=== PATIENT | female | born 1960 | race Caucasian/White ===

== ENCOUNTER → 2016-09-30 | Outpatient (CLI) | payer OTHER ==
[~2016-09-30] VITALS: Ht 162.6 cm; Wt 56.0 kg
[~2016-09-30] MED LIST: FOLIC ACID1 MG PO; HYDROCODON-ACE1 EAC5 PO; METHADONE HCL 110 M1 PO; MULTI VITAMIN1 EACH PO; THERALITH XR T1 EACH PO; VITAMIN B-12500 MCG PO; VITAMIN D1000 UNI1 PO
--- NOTE | ~2016-09-30 | HPC ---
[facility] [place] [address] PAIN MANAGEMENT CONSULTATION Name: JAYNA DURAN [facility] #: [facility] [id number] Admission: 09/30/16 Attend Phys: Olvin Green MD Discharge: Date of : 56 Report #: [id number] THIS REPORT FOR: //name// CC: ADAM Duarte MD DATE OF SERVICE: 09/30/2016 DATE OF SERVICE: 09/30/2016 CHIEF COMPLAINT: Pain has improved. FOLLOWUP HISTORY: The patient is a 56-year-old female, who has been seen in the pain clinic because of lumbar radiculopathy. As you recall, she has a significant amount of spinal stenosis involving her lower back. She also has significant scoliosis in the lower back area. She underwent an epidural steroid injection in the past few weeks. She noticed that her pain improves significantly after that. She rates it as a 7/10. She is able to engage in more activities with less problem. At this juncture, she feels that things are going reasonably well and would like to continue on a conservative approach. PHYSICAL EXAMINATION: Blood pressure 139/91, pulse 78, respiratory rate 14, room air saturation is 96%. The patient's height 5 feet 4 inches, weight 155 kilograms. BMI 26. The patient continues to smoke. She has not fallen since we saw her last. She notes that the pain which has been radiating down into her legs has improved. She would like to have her medications refilled. She notes that the pain is worse after walking for a long period of time. Notes improvement in pain with sitting. IMPRESSION: 1. Significant spinal stenosis in the lumbar area with a curvature to the right as well as lumbar radiculopathy in the left as well in the right area. 2. Hypertension. 3. Acid reflux. RECOMMENDATIONS: We will continue with the patient's current medical regimen and a script for methadone 10 mg 1 p.o. b.i.d. has been written. The patient will also try and continue hydrocodone 10 mg 1 p.o. b.i.d. She will call us if she has any problems with her medications. We would like to thank you for letting us participate in her care. We hope she continues to improve. <ELECTRONICALLY SIGNED> By: Olvin Green MD 10/18/16 [id number] Olvin Green MD /nt
[2016-09-30 12:55] VITALS: BP 139/91
== END | disposition home or self-care (01) ==
LOC: PAIN 07:19
DX: M48.06 Spinal stenosis, lumbar region (principal); I10 Essential (primary) hypertension; K21.9 Gastro-esophageal reflux disease without esophagitis; F17.200 Nicotine dependence, unspecified, uncomplicated

== ENCOUNTER → 2016-12-09 | Outpatient (CLI) | payer OTHER ==
[~2016-12-09] VITALS: Ht 160 cm; Wt 54.0 kg
--- NOTE | ~2016-12-09 | HPC ---
[facility] [address] [address] PAIN MANAGEMENT CONSULTATION Name: JAYNA DURAN [facility] [id number] Admission: 12/09/16 Attend Phys: Olvin Green MD Discharge: Date of : 56 Report #: [id number] THIS REPORT FOR: //name// CC: João Duarte DO DATE OF SERVICE: 12/09/2016 FOLLOWUP COMPLAINT: My back is a little worse because I have been lifting the babies. FOLLOWUP HISTORY: The patient is a 56-year-old female who has been seen in the pain clinic because of lumbar radiculopathy. As you recall, she has a significant pathology in her lower back with scoliosis. She is having pain and discomfort, which radiates down into her legs causing numbness, tingling and weakness involving the right leg. She has undergone epidural steroid injections and gleaned benefit from that. She has noticed that her pain increased somewhat in the last few weeks. Her daughter recently had a baby. The youngest child was at home with her. She had to lift and move the child from car seat, chair, and on and off beds. She notices that has exacerbated her pain somewhat. She would like to proceed with another epidural steroid injection, which provided greater than 80% improvement after the last procedure. PHYSICAL EXAMINATION: Blood pressure 145/94, pulse 71, respiratory rate 14, room air saturation 96%. The patient has pain and discomfort in the lower portion of her back with pain radiating down into her left leg with some tingling. She also has pain in the right leg as well. More problematic on the left. IMPRESSION: Spinal stenosis with curvature of her back to the right with lumbar radiculopathy, which improved by greater than 50% after the last epidural steroid injection. RECOMMENDATIONS: We discussed treatment options with the patient. She will continue with epidural steroid injections as long as possible with the thought that she will probably undergo surgery in the future. PROCEDURE NOTE: The patient was placed in the home prone position. Risks and benefits were again reviewed. Possible complications were discussed. The patient was placed in the prone position. Her back was sterilely prepped with Betadine. 0.25% bupivacaine was infiltrated at the L4-L5 interspace. This area had been sterilely prepped with Betadine and infiltrated with 0.25% bupivacaine. Total of 80 mg Depo-Medrol, 40 mg triamcinolone and 2 mL of 0.5% bupivacaine was injected. The patient tolerated the procedure well. A script for methadone [address] [address] PAIN MANAGEMENT CONSULTATION Name: JAYNA DURAN Room #: REG [facility] Mj.Ghassan.#: [id number] Admission: 12/09/16 Attend Phys: Olvin Green MD Discharge: Date of : 56 Report #: [id number] 10 mg 1 p.o. b.i.d. and hydrocodone 10/325 one p.o. b.i.d. have been dispensed. The patient will call us if she has any problems with her medications. We would like to thank you for letting us participate in her care. We hope she continues to improve. By: [id number] Olvin Green MD /nt
[2016-12-09 12:44] VITALS: BP 145/94
== END | disposition home or self-care (01) ==
LOC: PAIN 07:04
DX: M48.06 Spinal stenosis, lumbar region (principal); F17.200 Nicotine dependence, unspecified, uncomplicated

== ENCOUNTER → 2017-02-01 | Outpatient (CLI) | payer OTHER, SELFPAY ==
[~2017-02-01] VITALS: Ht 160 cm; Wt 53.5 kg
--- NOTE | ~2017-02-01 | HPC ---
[facility] [place] [address] [address] PAIN MANAGEMENT CONSULTATION Name: JAYNA DURAN Room #: REG [facility]..#: [id number] Admission: 02/01/17 Attend Phys: Olvin Green MD Discharge: Date of : 56 Report #: [id number] THIS REPORT FOR: //name// CC: João Duarte DO DATE OF SERVICE: 02/01/2017 FOLLOWUP COMPLAINT: The pain has increased a little and I think it would be better if I had another hydrocodone pill. FOLLOWUP HISTORY: The patient is a 56-year-old female who has been followed in the pain clinic because of lumbar radiculopathy. She has undergone epidural steroid injections in the past. She has found some benefit from these. She continues to have pain and discomfort. As you recall, she has significant problems with scoliosis of her lower back. She is continuing to have some weakness, numbness and tingling involving her right leg. She feels that her pain medications are helpful. She does note that by the end of the day that she has an increasing amount of pain that is problematic, particularly at night. PHYSICAL EXAMINATION: Blood pressure 140/83, pulse 68, respiratory rate 14, room air saturation 99%. Height 5 feet 3 inches. BMI is 20. Weight is 53 kg. She continues to have pain and discomfort radiating down into her left leg with tingling and weakness. IMPRESSION: 1. Spinal stenosis with significant curvature of her back to the right. 2. Lumbar radiculopathy with pain radiating down into the left leg with weakness. Greater than 50% improvement after epidural steroid injections. RECOMMENDATIONS: We discussed treatment options with the patient. We will continue with a conservative approach. She will continue with methadone 1 p.o. b.i.d. and hydrocodone 1 p.o. t.i.d. has been issued. She will call us if she has any problems with her medications. We would like to thank you for letting us participate in her care. We hope she continues to improve. By: [id number] Olvin Green MD /nt
[2017-02-01 12:02] VITALS: BP 140/83
== END | disposition home or self-care (01) ==
LOC: PAIN 07:22
DX: M48.06 Spinal stenosis, lumbar region (principal); F17.210 Nicotine dependence, cigarettes, uncomplicated

== ENCOUNTER → 2017-03-03 | Outpatient (CLI) | payer OTHER, SELFPAY ==
[~2017-03-03] VITALS: Ht 160 cm; Wt 52.8 kg
--- NOTE | ~2017-03-03 | HPC ---
[facility] [place] [address] [place] [address] PAIN MANAGEMENT CONSULTATION Name: JAYNA DURAN Room #: REG [facility].Ghassan.#: [id number] Admission: 03/03/17 Attend Phys: Olvin Green MD Discharge: Date of : 56 Report #: [id number] THIS REPORT FOR: //name// CC: João Duarte DO DATE OF SERVICE: 03/03/2017 FOLLOWUP COMPLAINT: "I am here for my medicine renewal and an epidural injection. The pain has worsened." FOLLOWUP HISTORY: The patient is a 56-year-old female who has been followed in the pain clinic because of lumbar radiculopathy. As you recall, she has significant pathology in the lower portion of her back with spinal stenosis. She has noted a worsening of pain and discomfort in the lower portion of her back with some pain radiating down into the right leg as well as the left leg. They follow the L5 dermatomal distribution. She has gleaned greater than 50% improvement after the last epidural steroid injections and would like to proceed with another treatment today. Possible complications were reviewed. The patient elects to proceed. PHYSICAL EXAMINATION: Blood pressure is 173/96, pulse is 62, respiratory rate 16, room air saturation is 97, height 5 feet 3 inches, weight 52 kilograms. BMI is 20. The patient has pain and discomfort radiating down into her legs, left and right in the L5 distribution. She notes some weakness in this area as well with numbness and tingling. IMPRESSION: 1. Spinal stenosis with significant curvature of her back to the right. 2. Lumbar radiculopathy with pain radiating down to the left leg as well as the right at this juncture. The patient has gleaned greater than 50% improvement after epidural steroid injections. RECOMMENDATIONS: We discussed treatment options with the patient. Risks and benefits of the procedure were again reviewed. Possible complications were discussed. They include possibility of infection, increased muscle soreness, headache, bleeding, increased muscle pain and/or not limited to those. She elects to proceed. PROCEDURE NOTE: The patient was placed in the prone position. Fluoroscopy was used to identify the L4-L5 interspace. This area had been sterilely prepped with Betadine and infiltrated with 0.25% bupivacaine. A total of 80 mg Depo-Medrol, 40 mg triamcinolone and 2 mL of 0.25% bupivacaine was injected. The patient tolerated the procedure well. There [place] [address] PAIN MANAGEMENT CONSULTATION Name: JAYNA DURAN [id number] Admission: 03/03/17 Attend Phys: Olvin Green MD Discharge: Date of : 56 Report #: [id number] will follow up in the future as needed. A script for methadone 10 mg 1 p.o. b.i.d. and hydrocodone 10 mg t.i.d. have been released. She will call us if she has any problems with her medications. We would like to thank you for letting us participate in her care. We hope she continues to improve. A total of 5 seconds fluoroscopy time was used. By: 1350 02 Olvin Green MD /nt
[2017-03-03 10:11] VITALS: BP 173/96
== END ==
LOC: PAIN 06:44
DX: M54.16 Radiculopathy, lumbar region (principal); M48.06 Spinal stenosis, lumbar region; I10 Essential (primary) hypertension; F17.210 Nicotine dependence, cigarettes, uncomplicated; Z79.899 Other long term (current) drug therapy

== ENCOUNTER → 2017-04-28 | Outpatient (CLI) | payer OTHER, SELFPAY ==
[~2017-04-28] VITALS: Ht 160 cm; Wt 54.0 kg
[~2017-04-28] MED LIST changes: +VOLTAREN100 GM TP
--- NOTE | ~2017-04-28 | HPC ---
[facility] [address] [place] [address] PAIN MANAGEMENT CONSULTATION Name: JAYNA DURAN Room #: REG [facility]..#: [id number] Admission: 04/28/17 Attend Phys: Olvin Green MD Discharge: Date of : 56 Report #: [id number] THIS REPORT FOR: //name// CC: João Duarte DO DATE OF SERVICE: 04/28/2017 FOLLOWUP COMPLAINT: Here for medication renewal. FOLLOWUP HISTORY: The patient is a 57-year-old female who has significant lumbar pathology. She has undergone epidural steroid injections. She states that in the future, she will probably undergo major back surgery to help with her pain and disability. She rates her pain as a 5/10. She has continued to have some pain radiating down into her legs. She was walking out of her backdoor. Her dog bumped her, she fell and traumatized her left shoulder and some back discomfort increased. She continues to have tingling in her left leg. She finds that hydrocodone and methadone are efficacious and would like to continue their use. She is taking them as prescribed. PHYSICAL EXAMINATION: Blood pressure 144/101, pulse 77, respiratory rate 16, room air saturation is 100%. Height 5 feet 3 inches, weight 119 pounds, BMI is 21. The patient continues to have pain and discomfort, which is radiating down into her back and leg. IMPRESSION: 1. Spinal stenosis with significant curvature of her back to the right. 2. Lumbar radiculopathy with pain radiating down to the left leg and the right leg. The patient gleans greater than 50% improvement after epidural steroid injections. She will consider an injection at the next visit. RECOMMENDATIONS: We will continue with her current medical management with hydrocodone 10/325 one p.o. t.i.d. and methadone 10 mg 1 p.o. b.i.d. The patient finds that Voltaren cream has been efficacious in decreasing pain and discomfort. A script for this medication has been written. We would like to thank you for letting us participate in her care. We hope she continues to improve. By: 1418 1511 Olvin Green MD /
[2017-04-28 12:49] VITALS: BP 144/101
== END ==
LOC: PAIN 06:32
DX: M48.06 Spinal stenosis, lumbar region (principal); M54.16 Radiculopathy, lumbar region

== ENCOUNTER → 2017-06-23 | Outpatient (CLI) | payer OTHER, SELFPAY ==
[~2017-06-23] VITALS: Ht 160 cm; Wt 55.5 kg
--- NOTE | ~2017-06-23 | HPC ---
[facility] [address] [address] PAIN MANAGEMENT CONSULTATION Name: JAYNA DURAN Room #: REG [facility]..#: [id number] Admission: 06/23/17 Attend Phys: Olvin Green MD Discharge: Date of : 56 Report #: [id number] THIS REPORT FOR: //name// CC: João Duarte DO DATE OF SERVICE: 06/23/2017 FOLLOWUP COMPLAINT: "The pain has really gotten better and I need another injection." FOLLOWUP HISTORY: The patient is a 57-year-old female who has been seen in the pain clinic because of lumbar radiculopathy. She has undergone epidural steroid injection in the past and gleaned benefits from these. She returns today indicating that her pain has becomes quite problematic over the last few weeks. She has had to take more pain medication. She rates her pain as 08/10. She has been experiencing some pain and discomfort in the left buttocks area. There is pain along the right lateral leg down the calf and into the foot. She also has some pain and discomfort in the left anterior thigh and notes a component of itching with this. PHYSICAL EXAMINATION: Blood pressure 149/89, pulse 68, respiratory rate 14, room air saturation 96%. Height 5 foot 3, weight 122 pounds, BMI is 21. The patient has not fallen since we saw her last. As you recall, she has a significant curvature in her back with scoliosis. She has significant arthritis in the lower portion of her back as well. She is having pain and discomfort in the L4-L5 dermatomal distribution. IMPRESSION: 1. Spinal stenosis with significant curvature of her back to the right. 2. Lumbar radiculopathy with pain radiating down the left leg and the right leg as described above. 3. Tobacco use. RECOMMENDATIONS: We discussed treatment options with the patient. Risks and benefits of an epidural steroid injection were again reviewed. Possible complications were discussed. Possibility of infection, increased muscle soreness, headache, bleeding, muscle trauma, nerve trauma were discussed and the patient elects to proceed. PROCEDURE NOTE: The patient was placed in the prone position. Fluoroscopy was used to identify the L4-L5 interspace. This area had been sterilely prepped with Betadine and infiltrated with 0.25% bupivacaine. Total of 80 mg Depo-Medrol, 40 mg triamcinolone and 2 mL of 0.25% bupivacaine was injected. [address] [address] PAIN MANAGEMENT CONSULTATION Name: JAYNA DURAN [id number] Admission: 06/23/17 Attend Phys: Olvin Green MD Discharge: Date of : 56 Report #: [id number] The patient tolerated the procedure well. Her pain decreased from 10 to 0 at the time of discharge. A renewal of her medication for methadone 10 mg 1 p.o. b.i.d. and hydrocodone 10 mg 1 p.o. t.i.d. has been written. She will follow up in the future as needed. We would like to thank you for letting us participate in her care. We hope she continues to improve. By: 1417 0142 Olvin Green MD /PMT
[2017-06-23 12:56] VITALS: BP 149/89
== END ==
LOC: PAIN 07:01
DX: M54.16 Radiculopathy, lumbar region (principal); M48.061 Spinal stenosis, lumbar region without neurogenic claudication; F17.200 Nicotine dependence, unspecified, uncomplicated; Z79.891 Long term (current) use of opiate analgesic

== ENCOUNTER → 2017-08-18 | Outpatient (CLI) | payer OTHER ==
[~2017-08-18] VITALS: Ht 160 cm; Wt 54.4 kg
[2017-08-18 13:37] VITALS: BP 143/87
== END ==
LOC: PAIN 07:11
DX: M48.061 Spinal stenosis, lumbar region without neurogenic claudication (principal); G89.29 Other chronic pain; F17.200 Nicotine dependence, unspecified, uncomplicated; Z98.890 Other specified postprocedural states; Z79.891 Long term (current) use of opiate analgesic

== ENCOUNTER → 2017-10-13 | Outpatient (CLI) | payer OTHER ==
[~2017-10-13] VITALS: Ht 157.5 cm; Wt 52.6 kg
[~2017-10-13] MED LIST changes: +FLEXERIL PO
--- NOTE | ~2017-10-13 | HPC ---
[facility] [address] [address] PAIN MANAGEMENT CONSULTATION Name: JAYNA DURAN Room #: REG [facility].#: [id number] Admission: 10/13/17 Attend Phys: Olvin Green MD Discharge: Date of : 56 Report #: [id number] THIS REPORT FOR: //name// CC: Olvin Duarte DATE OF SERVICE: 11/01/2017 CHIEF COMPLAINT: Low back pain. "My pain seems to be getting worse." FOLLOWUP HISTORY: The patient is a 57-year-old female who has been followed in the pain clinic because of chronic pain. As you recall, she has a significant amount of pathology in her low back with scoliosis. She has been talking to Dr. Sexton. At this juncture, she feels like her pain may be worsening. She has started a new job recently. She would like to continue to work for as long as she can. She hates to start a job and immediately go on medical leave. She is having pain and discomfort, which is radiating down into her lower back in the L5/L4 distribution. She would like to undergo another epidural steroid injection today. She rates her pain as a 9/10. She is experiencing numbness, tingling, sharp and crampy pain and discomfort down into her legs bilaterally. There is some pain and discomfort in the low back and buttocks area as well. She continues to take methadone and hydrocodone, they are helpful. She is contemplating that she may have to have surgery sooner than she would like. She has returned today for an epidural steroid injection to help control her pain. ALLERGIES: No known drug allergies. MEDICATIONS: Review of current medications include: 1. Methadone 10 mg 1 p.o. b.i.d. 2. Hydrocodone 10/325 one p.o. q. 4-6h. p.r.n. pain. 3. Multivitamins. 4. Vitamin D 1000 units. 5. Folic acid 1 mg. 6. TheraLith XR tablet. 7. Vitamin B 12/500 mg. PAIN CLINIC ASSESSMENT: 1. The patient is suffering from arthritis of the lower back with spinal stenosis and worsening curvature of her lower back. 2. Height 5 feet, 2 inches, weight 116 pounds, BMI is 21. 3. VITAL SIGNS: Blood pressure 153/86, respiratory rate is 16, pulse 77, The saturation was 98. 4. Pain intensity rated as 9 low back area. 5. Fall risk. The patient has not fallen in the last 3 months. She is not a fall risk. 6. The [place] [address] PAIN MANAGEMENT CONSULTATION Name: JAYNA DURAN [facility] [id number] Admission: 10/13/17 Attend Phys: Olvin Green MD Discharge: Date of : 56 Report #: [id number] 7. The patient is not being treated for hypertension. 8. Opioid therapy greater than 6 weeks. The patient has a contract with the pain clinic stating she will only get her medication at the pain clinic. 9. Risk assessment tool. 10. Functional assessment tool. 11 Recreational drug use, never. 12. Tobacco use. The patient was smoking about 3 cigarettes a day. Has a 90-pzab-jcek smoking history. 13. Alcohol use. Rarely uses alcohol, maybe 1 alcoholic beverage per week. PHYSICAL EXAMINATION: GENERAL: The patient is a well-developed female, appears stated age. Orientation: Alert and oriented x 3. Affect appears appropriate. HEENT: The patient is normocephalic, atraumatic. Extraocular muscles intact. Normal hearing. No nasal complaints. Buccal membranes moist. NECK: Without JVD or adenopathy. LUNGS: Clear to auscultation. HEART: Regular rate. ABDOMEN: Soft, nontender. MUSCULOSKELETAL: The patient has scoliosis of the upper back, walks with a slightly antalgic gait. The patient has pain and discomfort radiating down into the L4-L5 distribution involving her legs bilaterally with pain in the buttocks and exacerbation of pain when prolonged standing, walking and with sitting. IMPRESSION: 1. Spinal stenosis with significant curvature of back to the right. 2. Lumbar radiculopathy with pain radiating down to left and right leg. 3. Tobacco use, 30-year history. 4. Complex medication management to help control the pain with opioid therapy involving the methadone and hydrocodone. RECOMMENDATIONS: We discussed treatment options with the patient. The patient states that she is taking her medication as prescribed. She would not be able to continue with her job without use of medications at this juncture. She finds that the pain has increased. She feels that it is increasing. The weather pattern has changed that has been a factor. She feels that another injection would be helpful. Previous epidural steroid injections have been quite beneficial. She denies any problems with mentation or bowel or bladder dysfunction with use of her medications. She is aware that opioid medications are in the news. We have discussed the possible complication of opioid medications, which include addiction as well as long-term use may cause tolerance. States that she keeps her medications in a confined area. She would like to proceed with an epidural steroid injection. Risks and benefits of that, which could include infection, increased muscle soreness, headache, bleeding, worsening of pain, no improvement in pain and spinal headache were discussed. She elects to proceed. [facility] [address] [address] PAIN MANAGEMENT CONSULTATION Name: JAYNA DURAN Room #: REG [facility]#: [id number] Admission: 10/13/17 Attend Phys: Olvin Green MD Discharge: Date of : 56 Report #: [id number] PROCEDURE NOTE: The patient was placed in the prone position. Fluoroscopy was used to identify the site. Anterior and posterior as well as lateral viewing of the site was performed using fluoroscopy. Her back was sterilely prepped with a Betadine solution. A 0.25% bupivacaine was infiltrated into this area after appropriate placement of a 17-gauge Tuohy using loss of resistance technique. There was no CSF, heme or paresthesia. A total of 80 mg Depo-Medrol, 40 mg triamcinolone and 2 mL of 0.25% bupivacaine was injected. The patient tolerated the procedure well. There were no complications. A script for her medications of hydrocodone 10/325 one p.o. t.i.d. and methadone 15 mg a.m. and 10 mg evening were written. The patient will call us if she has any problems with her medications. I would like to thank you for letting us participate in her care. Hope she continues to improve. <ELECTRONICALLY SIGNED> By: Olvin Green MD 11/22/17 1426 1321 [id number] MD RANJAN Vargas
[2017-10-13 10:45] VITALS: BP 153/86
== END | disposition home or self-care (01) ==
LOC: PAIN 06:48
DX: M54.16 Radiculopathy, lumbar region (principal); F11.20 Opioid dependence, uncomplicated; M48.00 Spinal stenosis, site unspecified; Z79.899 Other long term (current) drug therapy; M19.90 Unspecified osteoarthritis, unspecified site; Z87.891 Personal history of nicotine dependence

== ENCOUNTER → 2018-01-05 | Outpatient (CLI) | payer OTHER ==
[~2018-01-05] VITALS: Ht 160 cm; Wt 53.5 kg
[~2018-01-05] MED LIST changes: -FLEXERIL PO
--- NOTE | ~2018-01-05 | HPC ---
[facility] [place] [address] PAIN MANAGEMENT CONSULTATION Name: JAYNA DURAN Room #: [facility] [id number] Admission: 01/05/18 Attend Phys: Olvin Green MD Discharge: Date of : 56 Report #: [id number] THIS REPORT FOR: //name// CC: Olvin Duarte DATE OF SERVICE: 01/05/2018 FOLLOWUP COMPLAINT: Here for an epidural steroid injection. FOLLOWUP HISTORY: The patient is a 57-year-old female who has been followed in the pain clinic because of significant pathology in her low back. She suffered from significant scoliosis. She has continued to work. Notes that her pain continues to worsen as time goes on. She has found that epidural steroid injections have been beneficial. They allow her to continue with her job and stay gainfully employed. She has recently secured a new job. She would like to continue to work as long as possible before having the undergo medical leave. She continues to have pain and discomfort in the L4-L5 distribution. Epidural steroid injections have been quite beneficial. At this point, she rates her pain as a 10/10. There is pain in the lower portion of her back, it radiates down to the low back down into her buttocks bilaterally and involves both legs. There is some discomfort in her ankles as well. She notes that the pain is exacerbated with prolonged sitting, walking and standing. It did improve somewhat with repositioning, stretching and cold applications. She would like to proceed with another epidural steroid injection. She finds that those have been helpful. Finds that the methadone medication hydrocodone are also helpful and enable her to stay as pain free as possible and functional. ALLERGIES: No known drug allergies. MEDICATIONS: 1. Methadone 10 mg 1 p.o. b.i.d., hydrocodone 10/325 one p.o. q. 4-6 p.r.n., multiple vitamins. 2. Vitamin D 1000 units. 3. Folic acid. 4. TheraLith XR tablets. 5. Vitamin B12/500 mg. PAIN CLINIC ASSESSMENT: 1. The patient has a history of osteoarthritic changes in the lower back. 2. Height 5 foot 3, weight 118 pounds, BMI is 20. 3. Vital signs, blood pressure 149/88, pulse 80, respiratory rate 14 and room air saturation is 100. Pain intensity 10/10. 4. Fall risk. The patient has not fallen in the last 3 months. 5. Blood thinner. The patient is not on [place] [address] PAIN MANAGEMENT CONSULTATION Name: JAYNA DURAN Room #: REG [facility]#: [id number] Admission: 01/05/18 Attend Phys: Olvin Green MD Discharge: Date of : 56 Report #: [id number] 6. History of hypertension. The patient is being treated for hypertension. 7. Opioid therapy greater than 6 weeks. The patient is on her opioid contract. 8. Risk assessment, moderate for opioid use. 9. Functional assessment tool 39/70 indicating moderate problems with activities of daily living secondary to the pain. 10. Recreational drug use. 11. Tobacco. The patient continues to smoke cigarettes. 12. Alcohol: The patient denies frequent use of alcoholic beverages. PHYSICAL EXAMINATION: GENERAL: The patient is well developed, well-nourished white female. Appears her stated age. She is alert and oriented x 3. Speech is fluent. HEENT: Normocephalic, atraumatic. Extraocular eye muscles intact. Sclerae nonicteric Hearing is within normal limits. Mucous membranes are moist. NECK: Without JVD or adenopathy. Good range of motion. LUNGS: Clear to auscultation without rales or rhonchi. HEART: Regular rate. S1, S2. ABDOMEN: Nontender. MUSCULOSKELETAL: The patient has significant scoliosis of the upper back and walks with a slightly antalgic gait. The patient has discomfort radiating down to the L4-L5 distribution involving her legs bilaterally and into the buttocks with exacerbation of pain with prolonged standing or walking. IMPRESSION: 1. Spinal scoliosis and significant curvature of back to the right. 2. Lumbar radiculopathy with pain radiating down to the left and right leg. 3. Tobacco use greater than 30-year history. 4. Complex medical regimen using opioid medications of methadone and hydrocodone. RECOMMENDATIONS: We discussed treatment options with the patient. Risks and benefits of an epidural steroid injection were again reviewed. Possible complications were discussed. The possible complications, which could include but are not limited to infection, increased muscle soreness, headaches, bleeding, nerve trauma, spinal headache were reviewed. The patient elects to proceed. She feels that her epidural steroid injections continue to be helpful. They are now able her to remain gainfully employed. They decrease the amount of pain and discomfort that she has had. She has had no complications. She would like to continue working as long as possible before she would have to undergo surgery for improvement of her condition. She elects to proceed. PROCEDURE NOTE: The patient was taken to the fluoroscopy area. She was assisted in getting on the fluoroscopy table. She was placed in the appropriate position. Her back was sterilely prepped with a Betadine solution and allowed to dry. Fluoroscopy using anterior, posterior as well as lateral visualization was used to identify the L4-L5 interspace. This area had been sterilely prepped [facility] [address] [place] [address] PAIN MANAGEMENT CONSULTATION Name: JAYNA DURAN Room #: REG [facility] Mitch.#: [id number] Admission: 01/05/18 Attend Phys: Olvin Green MD Discharge: Date of : 56 Report #: [id number] with Betadine and infiltrated with 0.25% bupivacaine. Total of 80 mg Depo-Medrol, 40 mg triamcinolone and 2 mL of 0.25% bupivacaine was injected. The patient tolerated the procedure well. She was then assisted to the waiting area. A Band-Aid had been placed. There was no bleeding. She remained there for an appropriate amount of time. A total of 30 seconds fluoroscopy time was used. The patient's pain was rated at 7 at the time of discharge. We would like to thank you for letting us participate in her care. We hope she continues to improve. <ELECTRONICALLY SIGNED> By: Olvin Green MD 01/19/18901 1825 13 Olvin Green MD /nt
[2018-01-05 11:12] VITALS: BP 149/88
== END | disposition home or self-care (01) ==
LOC: PAIN 12-08 07:47
DX: M48.061 Spinal stenosis, lumbar region without neurogenic claudication (principal); G89.29 Other chronic pain; M54.16 Radiculopathy, lumbar region; I10 Essential (primary) hypertension; F17.210 Nicotine dependence, cigarettes, uncomplicated; Z79.891 Long term (current) use of opiate analgesic; Z98.890 Other specified postprocedural states

== ENCOUNTER → 2018-02-23 | Outpatient (CLI) | payer OTHER ==
[~2018-02-23] VITALS: Ht 160 cm; Wt 52.1 kg
[~2018-02-23] MED LIST changes: +FLEXERIL PO
[2018-02-23 09:30] VITALS: BP 157/91
== END | disposition home or self-care (01) ==
LOC: PAIN 06:44
DX: M54.16 Radiculopathy, lumbar region (principal); M41.86 Other forms of scoliosis, lumbar region; I10 Essential (primary) hypertension; Z79.899 Other long term (current) drug therapy; F17.210 Nicotine dependence, cigarettes, uncomplicated

== ENCOUNTER → 2018-04-25 | Outpatient (CLI) | payer OTHER ==
[~2018-04-25] VITALS: Ht 160 cm; Wt 53.8 kg
[2018-04-25 10:11] VITALS: BP 146/94
== END | disposition home or self-care (01) ==
LOC: PAIN 07:01
DX: M54.16 Radiculopathy, lumbar region (principal); G89.29 Other chronic pain; F17.210 Nicotine dependence, cigarettes, uncomplicated; Z79.891 Long term (current) use of opiate analgesic

== ENCOUNTER → 2018-06-22 | Outpatient (CLI) | payer OTHER ==
[~2018-06-22] VITALS: Ht 160 cm; Wt 55.8 kg
--- NOTE | ~2018-06-22 | HPC ---
[facility] [address] [address] [place] [address] PAIN MANAGEMENT CONSULTATION Name: JAYNA DURAN Room #: REG [facility].#: [id number] Admission: 06/22/18 Attend Phys: Olvin Green MD Discharge: Date of : 56 Report #: [id number] THIS REPORT FOR: //name// CC: Olvin Duarte DATE OF SERVICE: 06/22/2018 FOLLOWUP HISTORY: Things were going pretty well. I was carrying an item, and slipped and pulled my back." FOLLOWUP HISTORY: The patient is a 58-year-old female who has been followed in the pain clinic because of lumbar radiculopathy. She has returned today indicating that her pain has been pretty well controlled after the last injection. She noted some worsening of her pain after walking. She states that she was carrying an item. She slipped somewhat. As a result, she pulled her back about one week ago. Since that time, she has noticed some increase in pain. Rates it as a 9/10. Overall, things were going reasonably well. Notes that the pain is exacerbated with standing, walking and sitting. Finds her medications continue to be helpful. Notes that use of cold as well as stretching are beneficial as well. She continues to work. She is having pain that is radiating down into her legs bilaterally. As you recall, her pain has been quite problematic since 2009. She would like to have her medications renewed. Feels that the medications are helpful. She is taking them as prescribed. ALLERGIES: No known drug allergies. CURRENT MEDICATIONS: Methadone 10 mg 1 p.o. b.i.d., hydrocodone 10/325 one p.o. 4-6 hours, multivitamins, vitamin D, folic acid, TheraLith XR tablets, vitamin B12 500 mg PAIN CLINIC ASSESSMENT/PQRS. 1. The patient has a history of osteoarthritic pain. Has pain in her lower back area. It is not being treated for rheumatoid arthritis. 2. Height 5 feet 3 inches, weight 123 pounds, BMI is 21.8: 3. Vital signs: Blood pressure 154/93, pulse 100, respiratory rate 16, room air saturation 98%. 4. Pain intensity 05/21. 5. Fall risk. The patient has not fallen in the last 3 months. 6. Blood thinner. The patient is not on a blood thinning medication. 7. Hypertension. The patient is being treated for hypertension. 8. Opioids greater than 6 weeks. The patient receives her medications from one source, the pain clinic. 9. Risk assessment tool 5/moderate risk for use of opioids. 10. Functional assessment tool 39/70. [address] [address] PAIN MANAGEMENT CONSULTATION Name: JAYNA DURAN [facility] [id number] Admission: 06/22/18 Attend Phys: Olvin Green MD Discharge: Date of : 56 Report #: [id number] 11. Recreational drug use. The patient denies use of recreational drugs. 12. Tobacco: The patient currently smokes. We discussed the benefits of decreasing smoking. 13. Alcohol: The patient denies use of frequent use of alcoholic beverages. PHYSICAL EXAMINATION: GENERAL: The patient is a well-developed, well-nourished, slightly thin white female. Appears her stated age. She is alert and oriented x 3. HEENT: Normocephalic, atraumatic. Extraocular eye muscles intact. Sclerae nonicteric. Mucous membranes are moist. Hearing is within normal limits. NECK: Without JVD or adenopathy. Good range of motion. LUNGS: Clear to auscultation without rales or rhonchi. HEART: Regular rate. S1, S2. ABDOMEN: Nontender. Bowel sounds present. MUSCULOSKELETAL: With note of scoliosis in the lower back. The patient without significant kyphosis or lordosis. The patient does have pain and discomfort. Has a somewhat antalgic gait. Complains of pain that radiates down into her legs bilaterally. This is in the L4-L5 distribution. Notes prolonged pain with standing as well as some increased pain with walking. IMPRESSION: 1. Spinal stenosis with significant curvature of her back to the right. 2. Lumbar radiculopathy with pain radiating down into the left and right legs. 3. Tobacco use greater than 30 years. 4. Complex medical management with methadone and hydrocodone. RECOMMENDATIONS: We discussed treatment options with the patient. At this juncture, she feels that her medications are helpful. She hurt her back while walking in store. She felt some slip of her leg. Quickly moved to keep from falling. No wrenching sensation in her back and has had a pain, which has worsened over the last week. Feels that her medications are working well. Had no complication from their use. We would like to have the medications renewed. Our recommendation, We will renew the patient's medication. Risks and benefits of the opioid medications were again reviewed. They include benefit secondary to pain relief and increase ability to engage in activities of daily living. Possible complications or addiction as well as decreased effectiveness secondary due to development of tolerance. PROCEDURE NOTE: We discussed the treatment options with the patient. Risks and benefits of an epidural steroid injection were again reviewed. They include but are not limited to infection, increased muscle soreness, headache, bleeding, worsening of pain, no improvement in pain, spinal irritation/nerve damage with paralysis. The patient elects to proceed. PROCEDURE NOTE: The patient was taken to the procedure area. She was assisted and helped to get on the examination table. Her back was sterilely prepped with [facility] [address] [place] [address] PAIN MANAGEMENT CONSULTATION Name: JAYNA DURAN Room #: REG [facility].#: [id number] Admission: 06/22/18 Attend Phys: Olvin Green MD Discharge: Date of : 56 Report #: [id number] a Betadine solution. Fluoroscopy using anterior, posterior as well as lateral viewing were introduced. Her back was infiltrated with 0.25% bupivacaine. A 17-gauge Tuohy with loss of resistance technique was used to gain access to the epidural space. There was no CSF, heme or paresthesia. Total of 80 mg Depo-Medrol, 40 mg triamcinolone and 2 mL of 0.25% bupivacaine was injected. The patient tolerated the procedure well. A script for her medications of methadone 10/325 one p.o. t.i.d., methadone 10 mg 1 p.o. b.i.d. were renewed. We would like to thank you for letting us participate in her care. We hope she continues to improve. <ELECTRONICALLY SIGNED> By: Olvin Green MD 06/25/18 1125 [id number] Olvin Green MD /[place]
[2018-06-22 14:22] VITALS: BP 154/93
== END | disposition home or self-care (01) ==
LOC: PAIN 07:09
DX: M54.16 Radiculopathy, lumbar region (principal); M48.00 Spinal stenosis, site unspecified; M19.90 Unspecified osteoarthritis, unspecified site; I10 Essential (primary) hypertension; F17.210 Nicotine dependence, cigarettes, uncomplicated; Z79.899 Other long term (current) drug therapy; Z79.891 Long term (current) use of opiate analgesic

== ENCOUNTER → 2018-08-24 | Outpatient (CLI) | payer OTHER ==
[~2018-08-24] VITALS: Ht 160 cm; Wt 54.0 kg
[~2018-08-24] MED LIST changes: +NEURONTIN100 MG PO
[2018-08-24 09:49] VITALS: BP 150/90
== END ==
LOC: PAIN 09:22
DX: M54.5 Low back pain (principal); M79.662 Pain in left lower leg; M79.661 Pain in right lower leg; I10 Essential (primary) hypertension; Z79.891 Long term (current) use of opiate analgesic; F17.210 Nicotine dependence, cigarettes, uncomplicated

== ENCOUNTER → 2018-10-24 | Outpatient (CLI) | payer OTHER ==
[~2018-10-24] VITALS: Ht 160 cm; Wt 57.8 kg
--- NOTE | ~2018-10-24 | HPC ---
[facility] [place] [address] PAIN MANAGEMENT CONSULTATION Name: JAYNA DURAN Room #: REG [facility] Mitch.#: [id number] Admission: 10/24/18 Attend Phys: Olvin Green MD Discharge: Date of : 56 Report #: [id number] THIS REPORT FOR: //name// CC: Olvin Duarte DATE OF SERVICE: 10/24/2018 CHIEF COMPLAINT: "Here for an epidural injection, also I would like to have my medications renewed." HISTORY OF PRESENT ILLNESS: The patient is a 58-year-old female who has been followed in the Pain Clinic because of chronic back pain. As you may recall, she has a significant amount of scoliosis. She has seen a neurosurgeon. He recommended she continue with epidural steroid injections as long as they are beneficial. She has returned today for renewal of her medication as well as another epidural steroid injection. Overall, things have been going reasonably well. The weather has changed quite a bit. We had temperatures of -7 degrees with wind chills of -25. It has been snowing. She has noted some changes with the waxing and waning of the weather pattern. Notes that she continues to try and stretch. She does continue to work. Standing and walking can sometimes be problematic. ALLERGIES: No known drug allergies. MEDICATIONS: Methadone 10 mg 1 p.o. b.i.d., hydrocodone 10/325 one p.o. 4-6 hours p.r.n., multivitamin, vitamin D, folic acid, TheraLith XR 8 tablets, vitamin B12 500 mg. PAIN CLINIC ASSESSMENT AND PQRS: 1. History of osteoarthritis: The patient has some arthritic changes of significance in her lower back. The patient is not being treated for rheumatoid arthritis. 2. Height 5 feet 3 inches, weight 127 pounds, BMI is 22.6. 3. Vital signs: Blood pressure 162/96, pulse 75, respiratory rate 16, room air saturation 98%. 4. Pain intensity: /. 5. Fall risk: The patient fell on the ice. 6. Blood thinner: The patient is not on a blood thinning medication. 7. Hypertension: The patient is being treated for hypertension. 8. Opioids greater than 6 weeks: The patient is receiving her medication from one source from the Pain Clinic. 9. Risk assessment tool: 5/5 which is moderate risk for opioid use. 10. Functional assessment tool: 39/70. 11. Recreational drug use: The patient denies use of recreational drugs. 12. Tobacco: The patient smokes one-third of a pack of cigarettes per day, [place] [address] PAIN MANAGEMENT CONSULTATION Name: JAYNA DURAN Room #: REG [facility]#: [id number] Admission: 10/24/18 Attend Phys: Olvin Green MD Discharge: Date of : 56 Report #: [id number] smoked for a number of years. We described and explained the benefits of smoking cessation. 13. Alcohol: The patient denies use of alcoholic beverages. PHYSICAL EXAMINATION: GENERAL: The patient is a well-developed, well-nourished, white female. Appears her stated age. She is alert and oriented x 3. Her affect is appropriate. Speech is fluent. HEENT: Normocephalic, atraumatic. Extraocular eye muscles intact. Sclerae nonicteric. Mucous membranes are moist. NECK: Without adenopathy or JVD. LUNGS: Clear to auscultation without rales or rhonchi. HEART: S1 and S2. ABDOMEN: Nontender. The patient has positive bowel sounds. MUSCULOSKELETAL: The patient has a significant amount of scoliosis in the lower lumbar area. The patient is without significant kyphosis or lordosis. The patient walks with an antalgic gait. She complains of pain and discomfort, which is sometimes more problematic when she goes from a sitting to a standing position. Uses her hands to go from a sitting to a standing position. She has pain and discomfort in the L4-L5 dermatomal distribution. Rates her pain as a 10/10 today. IMPRESSION: 1. History of spinal stenosis with significant curvature of the lumbar spine to the right. 2. Lumbar radiculopathy with pain radiating into the left and down into her leg. 3. Tobacco greater than 30-year history. Discussed decreasing use of tobacco. 4. Complex medical management using methadone and hydrocodone to help control the pain. RECOMMENDATIONS: We discussed treatment options with the patient. Risks and benefits of an epidural steroid injection were again reviewed. They include but are not limited to infection, worsening of pain, no improvement in pain, nerve damage with paralysis, bleeding, and the patient elects to proceed. PROCEDURE NOTE: The patient was taken to the procedure area. She was assisted in getting on the examination table. A pillow was placed under the abdomen to bolster and improve positioning. Fluoroscopy using anterior and posterior as well as lateral viewing were implemented. The patient's back at the L4-L5 interspace was sterilely prepped with Betadine solution and allowed to dry. A 25-gauge needle with 0.25% bupivacaine was infiltrated along the right L4-L5 interspace. A 17-gauge Tuohy with loss of resistance technique was used to gain access to the epidural space. There was no CSF, heme or paresthesia. Total of 80 mg Depo-Medrol, 40 mg triamcinolone, and 2 mL of 0.25% bupivacaine was injected. Total of 36 seconds fluoroscopy time was used. The patient's pain [facility] [address] [place] [address] PAIN MANAGEMENT CONSULTATION Name: JAYNA DURAN Room #: REG [facility].#: [id number] Admission: 10/24/18 Attend Phys: Olvin Green MD Discharge: Date of : 56 Report #: [id number] decreased from 10 to 7 at the time of discharge. She will follow up in the future as needed. We would like to thank you for letting us participate in her care. We hope she continues to improve. By: [id number] Olvin Green MD /nt
[2018-10-24 10:59] VITALS: BP 162/96
--- NOTE | 2018-10-24 11:09 | NUR ---
Pain Clinic Assessment: 1. History of Osteoarthritis: NONE History of Rheumatoid Arthritis: NONE 2. Height: 5 ft. 3 in. 160.0 cm. Weight: 127.4 lb. oz. 57.788 kg. Patient's BMI: 22.6 3. Vital Signs: BP: 162/96 Pulse: 75 Resp: 16 Temp: 02 Sat: 98 ECG Mon: 4. Pain Intensity: 10 5. Fall Risk: Dizziness: N Needs help standing or walking: N Fallen in the last 3 months: Y Fall risk comments: 6. Patient on Blood Thinner: None 7. History of Hypertension: Y 8. Opioid Therapy greater than 6 weeks: Y Opiate Contract Signed: 09/30/16 9. Risk Assessment Tool Provided: 5-mod risk 10. Functional Assessment Tool: 11. Recreational Drug Use: Never Drug Type: Tobacco Use: Current Some Day Smoker Tobacco Type: Cigarettes Amount or Packs/day: 1/3 PACK How Many Years: Alcohol Use: No Frequency: Quant:
== END | disposition home or self-care (01) ==
LOC: PAIN 07:06
DX: M54.16 Radiculopathy, lumbar region (principal); M48.061 Spinal stenosis, lumbar region without neurogenic claudication; M19.90 Unspecified osteoarthritis, unspecified site; I10 Essential (primary) hypertension; F17.210 Nicotine dependence, cigarettes, uncomplicated; Z79.899 Other long term (current) drug therapy

== ENCOUNTER → 2018-12-21 | Outpatient (CLI) | payer OTHER ==
[~2018-12-21] VITALS: Ht 160 cm; Wt 54.8 kg
[~2018-12-21] MED LIST changes: +GABAPENTIN 100100 MG PO
[2018-12-21 09:41] VITALS: BP 164/92
--- NOTE | 2018-12-21 09:45 | NUR ---
Pain Clinic Assessment: 1. History of Osteoarthritis: NONE History of Rheumatoid Arthritis: NONE 2. Height: 5 ft. 3 in. 160.0 cm. Weight: 120.8 lb. oz. 54.794 kg. Patient's BMI: 21.4 3. Vital Signs: BP: 164/92 Pulse: 86 Resp: 16 Temp: 02 Sat: 94 ECG Mon: 4. Pain Intensity: 7-8 5. Fall Risk: Dizziness: N Needs help standing or walking: N Fallen in the last 3 months: N Fall risk comments: 6. Patient on Blood Thinner: None 7. History of Hypertension: Y 8. Opioid Therapy greater than 6 weeks: Y Opiate Contract Signed: 09/30/16 9. Risk Assessment Tool Provided: 5-mod risk 10. Functional Assessment Tool: 11. Recreational Drug Use: Never Drug Type: Tobacco Use: Current Some Day Smoker Tobacco Type: Amount or Packs/day: How Many Years: Alcohol Use: No Frequency: Quant:
--- NOTE | 2018-12-24 07:23 | HPC ---
[facility] [address] [place] [address] PAIN MANAGEMENT CONSULTATION Name: JAYNA DURAN Room #: REG LIS Mitch.#: [id number] Admission: 12/21/18 ������������������ Attend Phys: Olvin Green MD Discharge: ������������������ Date of : 56 Report #: [id number] THIS REPORT FOR: //name// CC: Olvin Duarte DATE OF SERVICE: 12/21/2018 CHIEF COMPLAINT: Chronic low back pain, scoliosis. HISTORY OF PRESENT ILLNESS: The patient returns to the pain clinic today for refill of her medication. This is a very pleasant 58-year-old female. She tells me that her pain score today is a 7/8, which is an average pain score for her. She tells me that the epidurals were very helpful in helping with her pain. She tells me now that the medications are helpful as well. She said she had no idea how bad her scoliosis was until Dr. Green told her. She tells me she does yoga, which is very helpful to stretch her back and she feels better when she does that. She also feels better with her medications. She tells me her pain is worse when she is walking and standing and sitting that she is still active and tells me a story about recently going [place]. She tells me she has no problems with constipation or daytime sleepiness. She would like a refill of her medications today. ALLERGIES: No known drug allergies. MEDICATIONS: Methadone 15 mg in the morning and 10 at night, hydrocodone 10/325 up to 3 times a day, gabapentin 100 mg 3 times a day, Flexeril 10 mg b.i.d., multivitamin, vitamin D, folic acid, vitamin B6, and vitamin B12. PQRS: 1. She has a history of some arthritic changes in her lower back. She is not being treated for rheumatoid arthritis. 2. Height is 5 feet 3 inches, weight is 120, BMI is 21. 3. Vital signs: 164/92, pulse is 86, respirations 16, oxygen sat is 94. 4. Pain score 7-8. 5. Denies dizziness. Has not fallen in the last 3 months. Does not need help walking or standing. 6. The patient is not on any blood thinners. She does have a history of hypertension. 7. Opioid therapy is greater than 6 weeks; therefore, an opioid signed contract is on the chart. 8. Her functional assessment is 39/70 and her risk assessment is moderate. 9. Recreational drug use, she denies. She is a current smoker and does not drink alcohol. We did check the prescription monitoring system[place] [address] PAIN MANAGEMENT CONSULTATION Name: [facility]URAN [id number] Admission: 12/21/18 ������������������ Attend Phys: Olvin Green MD Discharge: ������������������ Date of : 56 Report #: [id number] appropriately with her medications. She is on time for her medicines today. We will check an oral drug swab today on this patient. We do not have a drug screen on the chart. The patient did tell me that she has been using some CBD oil. I informed her that CBD should not have any marijuana in it, so that should be fine, but we will make a note that she has been taking the CBD oil. PHYSICAL EXAMINATION: GENERAL: This is a well-developed, well-nourished white female who appears her stated age. She is alert and orientated. Her affect is appropriate. HEENT: Normocephalic, atraumatic. Extraocular eye muscles are intact. Mucous membranes are moist. MUSCULOSKELETAL: She has significant amount of scoliosis in her lumbar area. She is without kyphosis or lordosis. She complains of some lower back pain that she is able to get up from sitting to standing without using her hands on the chair. She does walk with an antalgic gait. Her pain and discomfort in her lower back follows the L4-L5 dermatomal distribution. IMPRESSION: 1. History of spinal stenosis with significant curvature of her lumbar spine. 2. Lumbar radiculopathy. 3. Tobacco use greater than 30 years. 4. Complex medical management under terms of methadone, hydrocodone under written agreement. We reviewed the fact that opiate medications are being used to provide analgesia adequate to support activities of daily living, not attempting to achieve a specific pain score on the 0-10 Visual Analog Scale. The current opiate medications are providing sufficient analgesia to allow the patient to participate in activities of daily living. The patient is not exhibiting any aberrant behavior suggestive of drug diversion. The patient is not having any adverse reactions to medications. The patient is not suffering from daytime somnolence or mental acuity changes. The patient is managing opiate-induced constipation with appropriate evih-sho-adsichj agents and dietary considerations. The patient was counseled on concern for caution with operating a motor vehicle while using opiate medications. A physical exam was performed and the patient's functional status was evaluated. All patients with back pain were advised against the bed rest greater than 4 days and were advised to return to normal activities. Pain score assessment was noted and the treatment plan was reviewed with the patient. All current medications, both prescribed and OTC were reviewed and reconciled on the electronic medical record. Tobacco screening was accomplished and smoking cessation was advised when indicated. BMI was noted and diet/exercise modification was recommended for all patients following outside normal parameters. [facility] [address] [place] [address] PAIN MANAGEMENT CONSULTATION Name: JAYNA DURAN Room #: REG LIS [facility]assan.#: [id number] Admission: 12/21/18 ������������������ Attend Phys: Olvin Green MD Discharge: ������������������ Date of : 56 Report #: [id number] I reviewed with the patient today their responsibilities to safeguard prescription medications, reviewed their responsibility to utilize medications only as prescribed by the physician. They are to seek and receive pain medications only from 1 physician group ( [facility]). They are to use 1 pharmacy and keep the clinic informed if they change pharmacies. Their responsibilities include making followup visits in a timely fashion and to avoid abrupt discontinuation of medication usage. Their responsibilities further include bringing their medications (bottles from the pharmacy with residual pills) to the visit for possible confirmation of pill counts and the patient understands it is their responsibility to submit to random drug screens to ensure both that the medications prescribed are present, and that no other controlled substances are present. All prescriptions provided today were generated electronically. PLAN: 1. We discussed treatment options with the patient today. We will refill her medications of methadone 10 mg tablets #75, 15 in the morning and 10 at night for today and 4-week release. Hydrocodone 10/325 up to 3 times a day for today and 4-week release and gabapentin 100 mg t.i.d., #90 with one additional refill. 2. We discussed trying to decrease her smoking. The patient has smoked for a long time. She will find it hard to decrease this, but we encouraged her to try to see if that will help some of her back pain. 3. We will obtain a buccal drug screen on this patient today. The patient is currently chewing gum. I asked her to remove that, so we could collect a specimen. The patient then said that wondered if we could do it next time since she was using CBD oil. I explained to her that CBD oil should only have CBD in it and no THC, so therefore her drug screen should come back with only her methadone and hydrocodone. The patient verbalizes understanding and let us collect a specimen today. 4. The patient will return in 2-month time period for medications. 5. The patient is seen with Dr. Green who collaborated care today. ��������������������������������������������� <ELECTRONICALLY SIGNED> ���������������������������������������� By: Katy Simpson ��������������������������������������������� 12/24/18 0723 1049 [id number] Katy Simpson /[place]
== END ==
LOC: PAIN 06:51
DX: M48.061 Spinal stenosis, lumbar region without neurogenic claudication (principal); M54.16 Radiculopathy, lumbar region; F17.200 Nicotine dependence, unspecified, uncomplicated; Z79.899 Other long term (current) drug therapy

== ENCOUNTER → 2019-02-21 | Outpatient (CLI) | payer OTHER ==
[~2019-02-21] VITALS: Ht 160 cm; Wt 52.5 kg
[2019-02-21 10:32] VITALS: BP 165/114
--- NOTE | 2019-02-21 10:49 | NUR ---
Pain Clinic Assessment: 1. History of Osteoarthritis: NONE History of Rheumatoid Arthritis: NONE 2. Height: 5 ft. 3 in. 160.0 cm. Weight: 115.8 lb. oz. 52.526 kg. Patient's BMI: 20.5 3. Vital Signs: BP: 165/114 Pulse: 72 Resp: 14 Temp: 02 Sat: 98 ECG Mon: 4. Pain Intensity: 8 5. Fall Risk: Dizziness: N Needs help standing or walking: N Fallen in the last 3 months: N Fall risk comments: 6. Patient on Blood Thinner: None 7. History of Hypertension: Y 8. Opioid Therapy greater than 6 weeks: Y Opiate Contract Signed: 09/30/16 9. Risk Assessment Tool Provided: 5-mod risk 10. Functional Assessment Tool: 11. Recreational Drug Use: Never Drug Type: Tobacco Use: Current Some Day Smoker Tobacco Type: Cigarettes Amount or Packs/day: How Many Years: Alcohol Use: No Frequency: Quant:
--- NOTE | 2019-02-22 08:16 | HPC ---
[facility] [address] [place] [address] PAIN MANAGEMENT CONSULTATION Name: JAYNA DURAN Room #: REG [facility]..#: [id number] Admission: 02/21/19 ������������������ Attend Phys: Katy Simpson Discharge: ������������������ Date of : 56 Report #: [id number] THIS REPORT FOR: //name// CC: Katy Simpson Elijah Gerald DATE OF SERVICE: 02/21/2019 CHIEF COMPLAINT: Low back pain, scoliosis. HISTORY OF PRESENT ILLNESS: This is a pleasant 58-year-old female who returns to the pain clinic today for refill of her medications. She tells me that she ran out of her methadone yesterday, and her pain score is elevated at 8/10 today. She tells me that she feels like she needs lumbar steroid injection from Dr. Green because her pain has increased in her lower back and her legs. It is a sharp, shooting pain, worse when she is walking and active, better with her medications and stretching. She would like refills of that medication today. The patient tells me that she has been very active in the past few months. She had had stressful situation at home requiring them to move out of a house they lived in for a long period of time, move into a rental property and she has been depressed over that and very stressed and she has lost weight. She is down to 115 pounds, which is a decrease in 5 pounds since her last visit, but since October, it is a decrease of 12 pounds. ALLERGIES: No known drug allergies. CURRENT MEDICATIONS: Methadone 10 mg twice a day, hydrocodone 10/325 p.r.n., gabapentin 100 mg 3 times a day, Flexeril 10 mg at bedtime, multivitamin daily, vitamin D, folic acid, vitamin B6 and vitamin B12. PQRS: 1. She has some arthritic changes in her lumbar spine. She is not being treated for rheumatoid arthritis. 2. Height is 5 feet 3 inches, weight is 115, BMI is 20. 3. Vital signs: Blood pressure 165/114, pulse of 72, respirations 14, oxygen sat is 98%. 4. Pain score is 8/10. 5. Denies dizziness. Does not need help walking or standing. She has not fallen in the last 3 months. 6. The patient is not on any blood thinners. Does have hypertension, though not taking medications currently. 7. Opioid therapy is greater than 6 weeks; therefore an opioid signed contract is on the chart. Her risk assessment tool is moderate. Her functional assessment is 39/70. 8. Recreational drug use, she denies. She is [place] [address] PAIN MANAGEMENT CONSULTATION Name: [facility]URAN [facility] [id number] Admission: 02/21/19 ������������������ Attend Phys: Katy Simpson Discharge: ������������������ Date of : 56 Report #: [id number] drink alcohol. We checked the prescription monitoring system. The patient is due for her medications today. We did do a buccal swab on the patient at the last visit she was here, which showed negative for her narcotics. We did approach this subject with the patient today. The patient tells me that she was taking her medication all the time. She ran out yesterday of her medications, but she said that she does take them on a regular basis. She fills her pillbox. She is not sure why it was showing negative for her medications. I explained to her that methadone does take a long time to get out of the system, but that we are unsure why it was testing negative as well. We reminded her that she is the only one to take her medications and she is to safeguard them and take them as directed. We will check another drug screen in the future since the patient is adamant that she is taking her medication as prescribed. I informed her we will not be checking it today and the next one we do check will be a urine drug screen and not an oral swab. We have had some incidences where the oral swabs were dry specimens that then were not accurately giving us a good picture of her medications. PHYSICAL EXAMINATION: GENERAL: This is a well-developed, well-nourished white female who appears her stated age. She is alert and orientated. Her affect is appropriate. HEENT: Normocephalic, atraumatic. Extraocular eye muscles are intact. Mucous membranes are moist. MUSCULOSKELETAL: She has scoliosis of the lumbar spine. She is without kyphosis or lordosis. She has low back pain radiating across lumbar spine radiating down into her bilateral legs following the L4-L5 dermatomal distribution. She is able to get up from sitting to standing without using armrest. She has an antalgic gait. IMPRESSION: 1. History of spinal stenosis with significant curvature of the lumbar spine. 2. Lumbar radiculopathy. 3. Tobacco use. Discussed smoking cessation. 4. Hypertension. 5. Complex medical management of written opioid agreement. We reviewed the fact that opiate medications are being used to provide analgesia adequate to support activities of daily living, not attempting to achieve a specific pain score on the 0-10 Visual Analog Scale. The current opiate medications are providing sufficient analgesia to allow the patient to participate in activities of daily living. The patient is not exhibiting any aberrant behavior suggestive of drug diversion. The patient is not having any adverse reactions to medications. The patient is not suffering from daytime somnolence or mental acuity changes. The patient is managing opiate-induced constipation with appropriate gbcn-syu-ikuavdv agents and dietary considerations. The patient was counseled on concern for caution with operating [facility] [address] [place] [address] PAIN MANAGEMENT CONSULTATION Name: JAYNA DURAN Room #: REG [facility]..#: [id number] Admission: 02/21/19 ������������������ Attend Phys: Katy Simpson Discharge: ������������������ Date of : 56 Report #: [id number] a motor vehicle while using opiate medications. A physical exam was performed and the patient's functional status was evaluated. All patients with back pain were advised against the bed rest greater than 4 days and were advised to return to normal activities. Pain score assessment was noted and the treatment plan was reviewed with the patient. All current medications, both prescribed and OTC were reviewed and reconciled on the electronic medical record. Tobacco screening was accomplished and smoking cessation was advised when indicated. BMI was noted and diet/exercise modification was recommended for all patients following outside normal parameters. I reviewed with the patient today their responsibilities to safeguard prescription medications, reviewed their responsibility to utilize medications only as prescribed by the physician. They are to seek and receive pain medications only from 1 physician group ([facility]). They are to use 1 pharmacy and keep the clinic informed if they change pharmacies. Their responsibilities include making followup visits in a timely fashion and to avoid abrupt discontinuation of medication usage. Their responsibilities further include bringing their medications (bottles from the pharmacy with residual pills) to the visit for possible confirmation of pill counts and the patient understands it is their responsibility to submit to random drug screens to ensure both that the medications prescribed are present, and that no other controlled substances are present. All prescriptions provided today were generated electronically. PLAN: 1. We discussed treatment options with the patient today. First, we did discuss her recent drug screen that did not have any of her medications. The patient was adamant that she does take her medications on a regular basis. It was oral swab that sometimes are dry in nature, so we will recheck in the future a urine drug screen. It did show traces of medication in her system, but not the range that we would expect with her current medications. 2. I explained to the patient we will give her a month of medication. She is fine with that because she is requesting a lumbar epidural steroid injection from Dr. Green. Her last injection was in October, which she received at least 65% relief. She felt that he administered a little higher, which was beneficial and she had relief for at least a month and a half after that injection. 3. We did talk about smoking cessation today. The patient is currently at 1 pack a day. We talked about how she decreased her cigarette use. This should help her pain and her opioids work better so they are not fighting for the same receptors. 4. We discussed her hypertension today. The patient's blood pressure today was 165/114 and then manually 202/105. Previous visits, it has been elevated as well at 164/92 fairly consistently for several months. The patient does not take any hypertension medications and I instructed her to call her primary and [address] [address] PAIN MANAGEMENT CONSULTATION Name: JAYNA DURAN Room #: REG [facility]..#: [id number] Admission: 02/21/19 ������������������ Attend Phys: Katy Simpson Discharge: ������������������ Date of : 56 Report #: [id number] see him tomorrow about medications. All of her recent blood pressures were given to the patient. 5. We did address the patient's weight decrease as well. She has lost 12 pounds since her appointment in October. The patient tells me she was undergoing lots of stress and has not been eating well, but she has recently had a complete physical from her primary care doctor with blood work and he found no reason for her weight loss medically. I did inform her that methadone can cause some anorexia, but she has been on methadone dose for greater than 3 years, so I do not believe that is the reason. 6. The patient is seen in collaboration today with Dr. Tuan Ruiz. Appointment made for 1 month. ��������������������������������������������� <ELECTRONICALLY SIGNED> ���������������������������������������� By: Katy Simpson ��������������������������������������������� 02/22/19 0816 1313 [id number] Katy Simpson /[place]
== END ==
LOC: PAIN 06:45
DX: M54.16 Radiculopathy, lumbar region (principal); I10 Essential (primary) hypertension; Z72.0 Tobacco use; Z79.899 Other long term (current) drug therapy

== ENCOUNTER → 2019-03-22 | Outpatient (CLI) | payer OTHER ==
[~2019-03-22] VITALS: Ht 160 cm; Wt 51.4 kg
[~2019-03-22] MED LIST changes: +LISINOPRIL20 MG PO
--- NOTE | ~2019-03-22 | HPC ---
[facility] [address] [place] [address] PAIN MANAGEMENT CONSULTATION Name: JAYNA DURAN Room #: REG LIS Mitch.#: [id number] Admission: 03/22/19 ������������������ Attend Phys: Olvin Green MD Discharge: ������������������ Date of : 56 Report #: [id number] THIS REPORT FOR: //name// CC: Olvin Duarte DATE OF SERVICE: 03/22/2019 CHIEF COMPLAINT: Here for an epidural injection and renewal of my medication. FOLLOWUP HISTORY: The patient is a 59-year-old female who has been followed in the pain clinic for some years. She has quite a bit of pathology in her back. She has significant amounts of arthritis. She has some areas of stenosis. She has returned today with the hopes of undergoing an epidural steroid injection. These in the past have been beneficial. She finds that use of narcotic medications have been helpful as well. This has enabled her to stay gainfully employed. She has talked with her surgeon in the past. He has recommended that she continue to undergo epidural steroid injections until they no longer work. She feels that things are going reasonably well and would like to undergo another epidural steroid injection today. She has had no complication from the previous injections. ALLERGIES: No known drug allergies. CURRENT MEDICATIONS: Methadone 10 mg t.i.d., hydrocodone 10/325, gabapentin 100 mg t.i.d., Flexeril 10 mg at bedtime, multivitamin daily, vitamin D, folic acid, vitamin B6, and vitamin B12. PAIN CLINIC ASSESSMENT AND PQRS: 1. Osteoarthritis. The patient has some arthritic changes in her back. She has not been treated for rheumatoid arthritis. 2. Height 5 feet 3 inches, weight 113 pounds, BMI 20. 3. Vital signs: Blood pressure 151/85, pulse 77, respiratory rate 14, room air saturation is 100%. 4. Pain intensity, 8/10. 5. Fall risk. The patient has not fallen in the last 3 months. 6. Blood thinner. The patient is not on a blood thinning medication. 7. Hypertension. The patient has been treated for hypertension. 8. Opioids. The patient receives her medications from one source, the pain clinic. 9. Risk assessment tool, 5 for opioid use, moderate. 10. Functional assessment tool, 39/70. 11. Recreational drug use. The patient denies use of recreational drugs. 12. Tobacco: The patient is a current smoker. 13. Alcohol: The patient denies frequent use of alcoholic beverages. [facility] [address] [place] [address] PAIN MANAGEMENT CONSULTATION Name: JAYNA DURAN Room #: REG [facility]#: [id number] Admission: 03/22/19 ������������������ Attend Phys: Olvin Green MD Discharge: ������������������ Date of : 56 Report #: [id number] PHYSICAL EXAMINATION: GENERAL: The patient is a well-developed, well-nourished, white female. She is alert and oriented x 3. Speech is fluent. HEENT: Normocephalic, atraumatic. Extraocular eye muscles intact. Sclerae nonicteric. Mucous membranes are moist. NECK: Without adenopathy or JVD. LUNGS: Clear to auscultation without rales or rhonchi. HEART: Regular rate. S1, S2. ABDOMEN: Nontender. Bowel sounds present. MUSCULOSKELETAL: The patient does have a significant amount of scoliosis in the lower lumbar area. She does not have very much kyphosis or lordosis. The patient's gait is somewhat antalgic. Complains of pain and discomfort that involves the lower back area in the L4-L5 dermatomal distribution. IMPRESSION: 1. History of spinal stenosis with significant curvature of spine to the right. 2. Lumbar radiculopathy with pain radiating to the left and down into her leg. 3. Tobacco greater than 30-year history. Discussed smoking cessation. 4. Complex medical management using methadone and hydrocodone to help control pain. RECOMMENDATIONS: We discussed treatment options with the patient. Risks and benefits of an epidural steroid injection were again discussed. They include but are not limited to infection, worsening pain, no improvement, spinal damage with paralysis and the patient elects to proceed. PROCEDURE NOTE: The patient was taken to the procedure area. She was then assisted in getting on the examination table. Her back was sterilely prepped with a Betadine solution. Fluoroscopy was used using anterior and posterior viewing. An attempt at L4-L5 on numerous occasions were not successful. The patient's arthritic changes have continued to worsen. We then elected to proceed with an injection at the L5-S1 area. This area had been sterilely prepped and 0.25% bupivacaine was then infiltrated. A 17-gauge Tuohy with loss of resistance technique was used to gain access to the epidural space. There was no CSF, heme or paresthesia. A total of 15 seconds fluoroscopy time was used. The patient remained in the pain clinic for an appropriate amount of time. A script for her medications for methadone 10 mg 1 p.o. b.i.d., total of 75 tablets, hydrocodone 10/325 1 p.o. t.i.d. were written. The patient will follow up with the pain clinic as needed. The patient noted a pain score of 7.5 at the time of discharge. Did not complain of any neurologic problems. [address] [place] [address] PAIN MANAGEMENT CONSULTATION Name: JAYNA DURAN Room #: REG [facility] M..#: [id number] Admission: 03/22/19 ������������������ Attend Phys: Olvin Green MD Discharge: ������������������ Date of : 56 Report #: [id number] We would like to thank you for letting us participate in her care. We hope she continues to improve. ��������������������������������������������� ���������������������������������������� By: ��������������������������������������������� 2219 [id number] Olvin Green MD /PMT
[2019-03-22 11:14] VITALS: BP 151/85
--- NOTE | 2019-03-22 11:37 | NUR ---
Pain Clinic Assessment: 1. History of Osteoarthritis: NONE History of Rheumatoid Arthritis: NONE 2. Height: 5 ft. 3 in. 160.0 cm. Weight: 113.4 lb. oz. 51.438 kg. Patient's BMI: 20.1 3. Vital Signs: BP: 151/85 Pulse: 77 Resp: 14 Temp: 02 Sat: 100 ECG Mon: 4. Pain Intensity: 8 5. Fall Risk: Dizziness: N Needs help standing or walking: N Fallen in the last 3 months: N Fall risk comments: 6. Patient on Blood Thinner: None 7. History of Hypertension: Y 8. Opioid Therapy greater than 6 weeks: Y Opiate Contract Signed: 09/30/16 9. Risk Assessment Tool Provided: 5-mod risk 10. Functional Assessment Tool: 11. Recreational Drug Use: Never Drug Type: Tobacco Use: Current Some Day Smoker Tobacco Type: Amount or Packs/day: How Many Years: Alcohol Use: No Frequency: Quant:
== END | disposition home or self-care (01) ==
LOC: PAIN 06:44
DX: M54.16 Radiculopathy, lumbar region (principal); M48.061 Spinal stenosis, lumbar region without neurogenic claudication; G89.29 Other chronic pain; I10 Essential (primary) hypertension; F17.210 Nicotine dependence, cigarettes, uncomplicated; Z79.891 Long term (current) use of opiate analgesic; Z79.899 Other long term (current) drug therapy; Z98.890 Other specified postprocedural states

== ENCOUNTER → 2019-05-24 | Outpatient (CLI) | payer OTHER ==
[~2019-05-24] VITALS: Ht 160 cm; Wt 51.6 kg
[~2019-05-24] MED LIST changes: +LISINOPRIL10 MG PO; +VOLTAREN GEL 1100 G1 TOP
[2019-05-24 09:30] VITALS: BP 158/108
--- NOTE | 2019-05-24 09:31 | NUR ---
Pain Clinic Assessment: 1. History of Osteoarthritis: NONE History of Rheumatoid Arthritis: NONE 2. Height: 5 ft. 3 in. 160.0 cm. Weight: 113.8 lb. oz. 51.619 kg. Patient's BMI: 20.2 3. Vital Signs: BP: 158/108 Pulse: 78 Resp: 18 Temp: 02 Sat: 99 ECG Mon: 4. Pain Intensity: 8 5. Fall Risk: Dizziness: N Needs help standing or walking: N Fallen in the last 3 months: Y Fall risk comments: NEAR FALL 1 MONTH AGO 6. Patient on Blood Thinner: None 7. History of Hypertension: Y 8. Opioid Therapy greater than 6 weeks: Y Opiate Contract Signed: 09/30/16 9. Risk Assessment Tool Provided: 5-mod risk 10. Functional Assessment Tool: 11. Recreational Drug Use: Never Drug Type: Tobacco Use: Current Some Day Smoker Tobacco Type: Amount or Packs/day: How Many Years: Alcohol Use: No Frequency: Quant:
--- NOTE | 2019-06-03 08:54 | HPC ---
[facility] [place] [place] [address] PAIN MANAGEMENT CONSULTATION Name: JAYNA DURAN [facility] #[id number] Admission: 05/24/19 ������������������ Attend Phys: Olvin Green MD Discharge: ������������������ Date of : 56 Report #: [id number] THIS REPORT FOR: //name// CC: Dr. Elijah Green Physician staff [facility] DATE OF SERVICE: 05/24/2019 CHIEF COMPLAINT: Here for medication renewal and an injection. HISTORY: The patient is a 59-year-old female who has been followed in the pain clinic for quite a number of years. As you may recall, she has a significant amount of arthritic changes in her low back area. She has been undergoing epidural steroid injections per the request of her neurosurgeon. She continues to work and remain gainfully employed. Notes that her pain can continue to increase and rates it as an 8/10 today. She has returned today with a hope of undergoing an epidural steroid injection. She has not had complications with that in the past. ALLERGIES: No known drug allergies. CURRENT MEDICATIONS: Methadone 10 mg 1 p.o. t.i.d., hydrocodone 10/325, gabapentin 100 mg t.i.d., Flexeril 10 mg at bedtime, multivitamin daily, vitamin D, folic acid, vitamin B6, vitamin B12. PAIN CLINIC ASSESSMENT AND PQRS: 1. The patient has some osteoarthritic changes involving her low back. She is not being treated for rheumatoid arthritis. 2. Height 5 feet 3 inches, weight 113 pounds, BMI is 20. 3. Vital Signs: Blood pressure 158/108, pulse 78, respiratory rate 18, room air saturation 99%. 4. Pain intensity, 04/20. 5. Fall history. The patient has not fallen, but did have a near fall about 1 month ago. Did not require medical assistance. 6. Blood thinner. The patient is not on a blood thinning medication. 7. Hypertension. The patient is being treated for hypertension. 8. Opioids greater than 6 weeks. The patient is receiving her medication from one source, the pain clinic. 9. Risk assessment tool, 5/moderate risk for opioid use. 10. Functional assessment tool, 39/70. 11. Recreational drug use, the patient denies. 12. Tobacco: The patient does smoke cigarettes. 13. Alcohol: The patient denies frequent use of alcoholic beverages. [facility] [address] [place] [address] PAIN MANAGEMENT CONSULTATION Name: JAYNA DURAN [id number] Admission: 05/24/19 ������������������ Attend Phys: Olvin Green MD Discharge: ������������������ Date of : 56 Report #: [id number] PHYSICAL EXAMINATION: GENERAL: The patient is a well-developed, well-nourished, white female. Appears her stated age. She is alert and oriented x 3. Her affect is appropriate. Speech is fluent. HEENT: Normocephalic, atraumatic. Extraocular eye muscles intact. Sclerae nonicteric. Mucous membranes are moist. NECK: Without adenopathy or JVD. LUNGS: Clear to auscultation without rales or rhonchi. HEART: Regular rate. S1, S2. ABDOMEN: Nontender. Bowel sounds present. MUSCULOSKELETAL: The patient without significant kyphosis. The patient does have significant amount of scoliosis in the lumbar spine. The patient's gait is somewhat antalgic. Complains of pain and discomfort in the low back area and down into the L4-L5 and L5-S1 areas. IMPRESSION: 1. History of spinal stenosis with significant curvature of the spine to the right. 2. Lumbar radicular pain radiating down to the left and into her leg. 3. A 30-year history of tobacco use. Discussed smoking cessation. 4. Complex medical management using methadone and hydrocodone to help control the patient's pain as long as possible to defer from having undergoing surgery. RECOMMENDATIONS: We discussed treatment options with the patient. At this juncture, we will continue with her current medical regimen. She will also undergo an epidural steroid injection. Risks and benefits of an epidural steroid injection were again reviewed and the patient states she understands. PROCEDURE: The patient was then taken to the procedure area. She was then assisted in getting on the examination table. Her back was sterilely prepped with a Betadine solution. A pillow was placed under the abdomen to bolster and improve positioning. The L5-S1 area on the left was sterilely prepped and infiltrated with 0.25% bupivacaine. A total of 80 mg Depo-Medrol, 40 mg triamcinolone and 2 mL of 0.25% bupivacaine was injected. The patient tolerated the procedure well. There were no complications. She remained in the pain clinic for an appropriate amount of time. She will follow up in the future as needed. We would like to thank you for letting us participate in her care. We hope she continues to improve. ��������������������������������������������� <ELECTRONICALLY SIGNED> ���������������������������������������� By: Olvin Green MD ��������������������������������������������� 06/03/19 0854 [id number] Olvin Green MD /[facility]
== END | disposition home or self-care (01) ==
LOC: PAIN 06:44
DX: M54.16 Radiculopathy, lumbar region (principal); G89.29 Other chronic pain; M48.061 Spinal stenosis, lumbar region without neurogenic claudication; F17.210 Nicotine dependence, cigarettes, uncomplicated; I10 Essential (primary) hypertension; Z79.899 Other long term (current) drug therapy; Z98.890 Other specified postprocedural states; Z79.891 Long term (current) use of opiate analgesic

== ENCOUNTER → 2019-07-19 | Outpatient (CLI) | payer OTHER ==
[~2019-07-19] VITALS: Ht 160 cm; Wt 50.8 kg
[2019-07-19 11:06] VITALS: BP 192/103
--- NOTE | 2019-07-19 11:13 | NUR ---
Pain Clinic Assessment: 1. History of Osteoarthritis: DENIES History of Rheumatoid Arthritis: DENIES 2. Height: 5 ft. 3 in. 160.0 cm. Weight: 112.0 lb. oz. 50.803 kg. Patient's BMI: 19.8 3. Vital Signs: BP: 192/103 Pulse: 74 Resp: 16 Temp: 02 Sat: 96 ECG Mon: 4. Pain Intensity: 7-8 5. Fall Risk: Dizziness: N Needs help standing or walking: N Fallen in the last 3 months: Y Fall risk comments: FELL 2 WEEKS AGO ON SIDEWALK DDI NOT SEEK CARE 6. Patient on Blood Thinner: None 7. History of Hypertension: Y 8. Opioid Therapy greater than 6 weeks: Y Opiate Contract Signed: 09/30/16 9. Risk Assessment Tool Provided: 5-mod risk 10. Functional Assessment Tool: 11. Recreational Drug Use: Never Drug Type: Tobacco Use: Current Some Day Smoker Tobacco Type: Cigarettes Amount or Packs/day: How Many Years: Alcohol Use: No Frequency: Quant:
== END | disposition home or self-care (01) ==
LOC: PAIN 06:53
DX: M54.5 Low back pain (principal); F17.210 Nicotine dependence, cigarettes, uncomplicated; Z79.899 Other long term (current) drug therapy

== ENCOUNTER → 2019-09-18 | Outpatient (CLI) | payer OTHER ==
[~2019-09-18] VITALS: Ht 160 cm; Wt 46.6 kg
[~2019-09-18] MED LIST changes: +DICLOFENAC SOD100 G1 TOP
[2019-09-18 10:48] VITALS: BP 103/67
--- NOTE | 2019-09-18 10:59 | NUR ---
Pain Clinic Assessment: 1. History of Osteoarthritis: DENIES History of Rheumatoid Arthritis: DENIES 2. Height: 5 ft. 3 in. 160.0 cm. Weight: 102.8 lb. oz. 46.630 kg. Patient's BMI: 18.2 3. Vital Signs: BP: 103/67 Pulse: 111 Resp: 20 Temp: 02 Sat: 95 ECG Mon: 4. Pain Intensity: 8 5. Fall Risk: Dizziness: N Needs help standing or walking: N Fallen in the last 3 months: N Fall risk comments: FELL 2 WEEKS AGO ON SIDEWALK DDI NOT SEEK CARE 6. Patient on Blood Thinner: None 7. History of Hypertension: Y 8. Opioid Therapy greater than 6 weeks: Y Opiate Contract Signed: 09/30/16 9. Risk Assessment Tool Provided: 1-LOW 10. Functional Assessment Tool: 11. Recreational Drug Use: Never Drug Type: Tobacco Use: Current Some Day Smoker Tobacco Type: Amount or Packs/day: How Many Years: Alcohol Use: No Frequency: Quant:
--- NOTE | 2019-09-19 16:01 | HPC ---
[facility] [address] [place] [address] PAIN MANAGEMENT CONSULTATION Name: JAYNA DURAN Room #: [facility]#: [id number] Admission: 09/18/19 Attend Phys: Katy Simpson Discharge: Date of : 56 Report #: [id number] THIS REPORT FOR: //name// CC: Katy Green MD Physician staff [facility] DATE OF SERVICE: 09/18/2019 CHIEF COMPLAINT: Back pain and lumbar radiculopathy. HISTORY OF PRESENT ILLNESS: This is a 59-year-old female who returns to the pain clinic today for refill of her medications. She finds them very beneficial in controlling her pain, taking her methadone twice a day as well as her hydrocodone. She also finds the diclofenac gel very beneficial, she uses this on her neck and back. She does report that the lumbar epidural steroid injection by Dr. Green at her last visit helped for greater than one month, at least 25% still at the present time. The patient reports that her pain is in her back that radiates down her left leg, greater than her right. It is a shooting, tingling, numbness, worse with walking and standing, but better with her medications and sitting down. She denies any problems with daytime sleepiness or constipation. ALLERGIES: No known drug allergies. CURRENT MEDICATIONS: Methadone 15 mg in the a.m., 10 mg at night; hydrocodone p.r.n.; gabapentin 100 mg 3 times a day; Voltaren gel; lisinopril; Flexeril; multivitamin; vitamin D; folic acid; vitamin B12. PQRS: 1. She is not being treated for rheumatoid arthritis, but she has some arthritic changes in her back. 2. Height is 5 feet 3 inches, weight is 102, BMI is 18. 3. Vital signs: Blood pressure 103/67, pulse is 111, respirations 20, oxygen sat is 95. 4. Pain score is 8/10. 5. Denies dizziness, does not need help walking or standing. Did fall a couple of weeks ago and did not seek medical attention. 6. The patient is not on any blood thinners, but does take medicine for hypertension. 7. Opioid therapy is greater than 6 weeks; therefore, an opioid signed contract is on the chart. Risk assessment tool is low. Functional assessment is 54/70. 8. Recreational drug use, she denies. She is a current [place] [address] PAIN MANAGEMENT CONSULTATION Name: JAYNA DURAN Room #: REG CL Otilio#: [id number] Admission: 09/18/19 Attend Phys: Katy Simpson Discharge: Date of : 56 Report #: [id number] drink alcohol. According to the prescription monitoring system, the patient is filling appropriately for her medications. She is due to fill those medications today. PHYSICAL EXAMINATION: GENERAL: This is a well-developed, well-nourished, well-hydrated 59-year-old female who appears her stated age, placing her current pain score at 8/10. HEENT: Normocephalic, atraumatic. Extraocular eye muscles are intact. Mucous membranes are moist. NECK: Without adenopathy or JVD. Does complain of some occipital tenderness. MUSCULOSKELETAL: She is without significant kyphosis. She does have scoliosis of the lumbar spine. Her pain radiates from her lumbar spine down the L4-L5 dermatomal distributions, greater on the left leg than the right. IMPRESSION: 1. Spinal stenosis and scoliosis of the lumbar area. 2. Lumbar radiculopathy. 3. History of tobacco use. Discussed smoking cessation. 4. Complex medical management using methadone and hydrocodone under opioid agreement. We reviewed the fact that opiate medications are being used to provide analgesia adequate to support activities of daily living, not attempting to achieve a specific pain score on the 0-10 Visual Analog Scale. The current opiate medications are providing sufficient analgesia to allow the patient to participate in activities of daily living. The patient is not exhibiting any aberrant behavior suggestive of drug diversion. The patient is not having any adverse reactions to medications. The patient is not suffering from daytime somnolence or mental acuity changes. The patient is managing opiate-induced constipation with appropriate [id number]-[id number] agents and dietary considerations. The patient was counseled on concern for caution with operating a motor vehicle while using opiate medications. A physical exam was performed and the patient's functional status was evaluated. All patients with back pain were advised against the bed rest greater than 4 days and were advised to return to normal activities. Pain score assessment was noted and the treatment plan was reviewed with the patient. All current medications, both prescribed and OTC were reviewed and reconciled on the electronic medical record. Tobacco screening was accomplished and smoking cessation was advised when indicated. BMI was noted and diet/exercise modification was recommended for all patients following outside normal parameters. I reviewed with the patient today their responsibilities to safeguard prescription medications, reviewed their responsibility to utilize medications [address] [address] PAIN MANAGEMENT CONSULTATION Name: JAYNA DURAN Room #: REG [facility].#: [id number] Admission: 09/18/19 Attend Phys: Katy Simpson Discharge: Date of : 56 Report #: [id number] only as prescribed by the physician. They are to seek and receive pain medications only from 1 physician group ( [facility]). They are to use 1 pharmacy and keep the clinic informed if they change pharmacies. Their responsibilities include making followup visits in a timely fashion and to avoid abrupt discontinuation of medication usage. Their responsibilities further include bringing their medications (bottles from the pharmacy with residual pills) to the visit for possible confirmation of pill counts and the patient understands it is their responsibility to submit to random drug screens to ensure both that the medications prescribed are present, and that no other controlled substances are present. All prescriptions provided today were generated electronically. PLAN: 1. We discussed treatment options with the patient today. The patient finds her methadone and hydrocodone very beneficial as well as periodic epidural injections, which the last one was in July, she did find that very beneficial in controlling some of her pain. She would like refills of her medicines today. 2. We prescribed methadone 10 mg b.i.d., 15 in the morning and 10 at night, quantity 75 for today and 4-week release; hydrocodone 5/325, #90, for today and 4-week release; diclofenac gel 2 tubes with 2 additional refills as well as gabapentin 100 mg t.i.d., #90 with 1 refill. 3. The patient is seen in collaboration with Dr. Rickie Green. The patient will return in 2 months for followup visit. <ELECTRONICALLY SIGNED> By: Katy Simpson 09/19/19 1601 1231 011 Katy ba
== END ==
LOC: PAIN 06:47
DX: M48.061 Spinal stenosis, lumbar region without neurogenic claudication (principal); M41.86 Other forms of scoliosis, lumbar region; M54.16 Radiculopathy, lumbar region; Z87.891 Personal history of nicotine dependence; Z79.899 Other long term (current) drug therapy

== ENCOUNTER → 2019-11-15 | Outpatient (CLI) | payer OTHER ==
[~2019-11-15] VITALS: Ht 160 cm; Wt 50.8 kg
[~2019-11-15] MED LIST changes: +MEDROLDOSEPACK PO
--- NOTE | ~2019-11-15 | HPC ---
[facility] [place] [address] PAIN MANAGEMENT CONSULTATION Name: JAYNA DURAN Room #: REG [facility] [id number] Admission: 11/15/19 Attend Phys: Olvin Green MD Discharge: Date of : 56 Report #: [id number] THIS REPORT FOR: cc: CONNOR PATEL Physician not on staff Olvin Green MD ~ CC: Olvin Green Physician staff CONNOR PATEL DATE OF SERVICE: 11/15/2019 CHIEF COMPLAINT: Here for medicine renewal. I have RSV virus. HISTORY: The patient is a 59-year-old female who has been followed in the pain clinic. She has a history of chronic pain. She suffers from spinal stenosis. She has significant scoliosis in the lower back area. She has pain that radiates down into both legs. Has returned today for renewal of her medications. Rates her pain as an 8/10. She states that she is being treated for respiratory syncytial virus. She has returned today for renewal of her medications. She continues to have pain and discomfort across her low back area. She has had pain for quite some number of years. This dates back to 2009. Pain is in both legs, left greater than right. She is experiencing some numbness and tingling in these areas. There is a shooting discomfort as well. ALLERGIES: No known drug allergies. CURRENT MEDICATIONS: 1. Methadone 10 mg 1 p.o. b.i.d., hydrocodone 10/325 t.i.d., gabapentin 100 mg t.i.d. 2. Diclofenac gel 4 times to the affected area, lisinopril 20 mg, Flexeril 10 mg b.i.d., multivitamins, vitamin D 1000 units, folic acid, vitamin B6, Theralith XR tablet, vitamin B12 500 mcg. PAIN CLINIC ASSESSMENT AND PQRS: 1. The patient is not being treated for rheumatoid arthritis. She does have osteoarthritis in her back. 2. Height 5 feet 3 inches, weight 112 pounds, BMI is 19.8. 3. Vital signs: Blood pressure 157/98, pulse 83, respiratory rate 14, room air saturation 97%. 4. Pain intensity 10. 5. Fall history: The patient fell 2 [address]. She did not seek medical assistance. 6. Blood thinner. The patient is not on a blood thinning medication. 7. Hypertension. The patient is being treated for hypertension. 8. Opioids greater than 6 weeks. The [place] [address] PAIN MANAGEMENT CONSULTATION Name: JAYNA DURAN Room #: REG [facility]#: [id number] Admission: 11/15/19 Attend Phys: Olvin Green MD Discharge: Date of : 56 Report #: [id number]. 9. Risk assessment tool is low. 10. Functional assessment tool 54/70. 11. Recreational drug use: The patient denies. 12. Tobacco: The patient continues to smoke. 13. Alcohol. The patient denies frequent use of alcoholic beverages. PHYSICAL EXAMINATION: GENERAL: The patient is a well-developed, well-nourished white female. Appears her stated age. She is alert and oriented x 3. Her affect is appropriate. Speech is fluent. HEENT: Normocephalic, atraumatic. Extraocular eye muscles intact. Sclerae nonicteric. Mucous membranes are moist. NECK: Without adenopathy. There is a smell of tobacco in the room. LUNGS: Clear to auscultation without rhonchi or rales. HEART: Regular rate. S1, S2. ABDOMEN: Nontender. MUSCULOSKELETAL: Without significant kyphosis. The patient does have significant amount of scoliosis in the lumbar spine. Her gait is slightly antalgic. Complains of pain and discomfort in lower portion of her back with pain that radiates down into the L4-L5 as well as the L5-S1 areas. IMPRESSION: 1. History of spinal stenosis with significant curvature of the right lumbar area. 2. Lumbar radicular pain radiating down to the left and right leg. 3. A 30 year history of tobacco use. Discussed benefits of smoking cessation. 4. Complex medical management using methadone to help control pain. 5. Respiratory syncytial virus. RECOMMENDATIONS: We discussed treatment options with the patient. At this juncture, the patient is being treated for respiratory syncytial virus. We will consider an epidural steroid injection at her next visit. At this point, we will continue with medications by mouth. A script for her medications has been written. She will call us if she has any concerns. We would like to thank you for letting us participate in her care. We hope she continues to improve. By: [id number] Olvin Green MD /[facility]
[2019-11-15 10:31] VITALS: BP 157/98
--- NOTE | 2019-11-15 10:44 | NUR ---
Pain Clinic Assessment: 1. History of Osteoarthritis: DENIES History of Rheumatoid Arthritis: DENIES 2. Height: 5 ft. 3 in. 160.0 cm. Weight: 112.0 lb. oz. 50.803 kg. Patient's BMI: 19.8 3. Vital Signs: BP: 157/98 Pulse: 83 Resp: 14 Temp: 02 Sat: 97 ECG Mon: 4. Pain Intensity: 8 5. Fall Risk: Dizziness: N Needs help standing or walking: Y Fallen in the last 3 months: N Fall risk comments: FELL 2 WEEKS AGO ON SIDEWALK DDI NOT SEEK CARE 6. Patient on Blood Thinner: None 7. History of Hypertension: Y 8. Opioid Therapy greater than 6 weeks: Y Opiate Contract Signed: 09/30/16 9. Risk Assessment Tool Provided: 1-LOW 10. Functional Assessment Tool: 11. Recreational Drug Use: Never Drug Type: Tobacco Use: Current Some Day Smoker Tobacco Type: Cigarettes Amount or Packs/day: How Many Years: Alcohol Use: No Frequency: Quant:
== END ==
LOC: PAIN 06:50
DX: M54.16 Radiculopathy, lumbar region (principal); B97.4 Respiratory syncytial virus as the cause of diseases classified elsewhere; Z87.891 Personal history of nicotine dependence; Z87.39 Personal history of other diseases of the musculoskeletal system and connective tissue; Z79.899 Other long term (current) drug therapy

== ENCOUNTER → 2020-01-10 | Outpatient (CLI) | payer OTHER ==
[~2020-01-10] VITALS: Ht 160 cm; Wt 49.8 kg
[2020-01-10 10:20] VITALS: BP 129/83
--- NOTE | 2020-01-10 10:53 | NUR ---
Pain Clinic Assessment: 1. History of Osteoarthritis: DENIES History of Rheumatoid Arthritis: DENIES 2. Height: 5 ft. 3 in. 160.0 cm. Weight: 109.8 lb. oz. 49.805 kg. Patient's BMI: 19.5 3. Vital Signs: BP: 129/83 Pulse: 79 Resp: 14 Temp: 02 Sat: 98 ECG Mon: 4. Pain Intensity: 8 5. Fall Risk: Dizziness: N Needs help standing or walking: N Fallen in the last 3 months: N Fall risk comments: FELL 2 WEEKS AGO ON SIDEWALK DDI NOT SEEK CARE 6. Patient on Blood Thinner: None 7. History of Hypertension: Y 8. Opioid Therapy greater than 6 weeks: Y Opiate Contract Signed: 09/30/16 9. Risk Assessment Tool Provided: 1-LOW 10. Functional Assessment Tool: 11. Recreational Drug Use: Never Drug Type: Tobacco Use: Former Smoker Tobacco Type: Amount or Packs/day: How Many Years: Alcohol Use: No Frequency: Quant:
--- NOTE | 2020-01-22 14:06 | HPC ---
[facility] [address] [place] [address] PAIN MANAGEMENT CONSULTATION Name: JAYNA DURAN Room #: REG [facility] Meyer.#: [id number] Admission: 01/10/20 Attend Phys: Olvin Green MD Discharge: Date of : 56 Report #: [id number] THIS REPORT FOR: cc: CONNOR PATEL Physician not on staff Olvin Green MD ~ CC: Olvin Green Physician staff CONNOR PATEL DATE OF SERVICE: 01/10/2020 CHIEF COMPLAINT: Back pain and pain down in the legs. HISTORY: The patient is a 59-year-old female who has been followed by the pain clinic. Spinal stenosis is problematic. She has it in her lower back. She has some significant amount of scoliosis. Because of the pain and discomfort, she has undergone epidural steroid injections. She has returned today with the thought of having her medications renewed and contemplating an epidural injection. She rates her pain as an 8/10. Standing and walking can be problematic. She feels that the medications continue to be helpful. Sometimes repositioning herself after sitting can be helpful. Pain is most problematic in the low back area and affecting her left leg. This pain has been going on for some time. This was initially noted in 2009. She continues to try a conservative approach. When her pain becomes overwhelming, she has considered an evaluation by her Neurosurgeon. She would like her medications renewed. ALLERGIES: No known drug allergies. CURRENT MEDICATIONS: Methadone 10 mg 1 p.o. b.i.d., hydrocodone 10/325 1 p.o. t.i.d., gabapentin 100 mg t.i.d., diclofenac gel 4 times daily, lisinopril 20 mg, Flexeril 10 mg b.i.d., multivitamins, vitamin D 1000 units, folic acid, vitamin D6, TheraLith XR tablets, vitamin B12 500 mcg. PAIN CLINIC ASSESSMENT AND PQRS: 1. The patient is not being treated for rheumatoid arthritis. She does have some arthritic changes in her back with scoliosis. 2. Height 5 feet 3 inches, weight 109 pounds, BMI is 19. 3. Vital signs: Blood pressure 129/83, pulse 79, respiratory rate 14, room air saturation 98%. 4. Pain intensity, 04/20. 5. Fall risk. The patient has not fallen since we saw her last. 6. Blood thinner. The patient is not on a blood thinning medication. 7. Hypertension. The patient is being treated for hypertension. 8. Opioids greater than 6 weeks. The patient receives medications [place] [address] PAIN MANAGEMENT CONSULTATION Name: JAYNA DURAN Room #: REG [facility]#: [id number] Admission: 01/10/20 Attend Phys: Olvin Green MD Discharge: Date of : 56 Report #: [id number] 9. Risk assessment tool, low for opioid use. 10. Functional assessment tool, 54/70. 11. Recreational drug use. The patient denies. 12. Tobacco. The patient is a former tobacco smoker. 13. Alcohol. The patient denies frequent use of alcoholic beverages. PHYSICAL EXAMINATION: GENERAL: The patient is a well-developed, well-nourished, white female. Appears her stated age. She is alert and oriented x 3. Her affect is appropriate. Speech is fluent. HEENT: Normocephalic, atraumatic. Extraocular eye muscles intact. Sclerae nonicteric. Mucous membranes are moist. NECK: Without adenopathy. LUNGS: Generally clear. HEART: Regular rate. ABDOMEN: Nontender. MUSCULOSKELETAL: The patient without significant kyphosis. The patient does have a significant amount of scoliosis of the lumbar spine. Her gait is slightly antalgic. The patient complains of pain and discomfort that is radiating down into her lower back and involving the left leg. IMPRESSION: 1. History of spinal stenosis with significant curvature of the right lumbar area. 2. Lumbar radicular pain radiating down to the left leg. 3. A 30-year history of tobacco use. We have discussed the benefits of smoking cessation. 4. Complex medical management using methadone to help control pain. 5. History of respiratory syncytial virus. RECOMMENDATIONS: We discussed treatment options with the patient. At this juncture, we will continue with her medications. We have discussed the benefits of an epidural steroid injection. We have discussed the problems with epidural steroid injections in this time of COVID-19 infections. The patient at this point would like to consider a Medrol Dosepak to take in the interim. She will return to the pain clinic in the future for an epidural injection. We have explained that use of opioid medications can decrease one's immunity. We have also discussed the use of Medrol Dosepak, which can decrease one's immunity as well. The patient feels that her pain is quite problematic at 8. She would like to try the Medrol Dosepak and will only take as many tablets as necessary to help decrease some of her pain and discomfort. A script for her medications has been provided. She will follow up in the near future. [address] [address] PAIN MANAGEMENT CONSULTATION Name: JAYNA DURAN Room #: REG [facility] Mitch.#: [id number] Admission: 01/10/20 Attend Phys: Olvin Green MD Discharge: Date of : 56 Report #: [id number] We would like to thank you for letting us participate in her care. We hope she continues to improve. <ELECTRONICALLY SIGNED> By: Olvin Green MD 01/22/20 1406 [id number] [id number] Olvin Green MD /[facility]
== END ==
LOC: PAIN 10:03
DX: M54.16 Radiculopathy, lumbar region (principal); F11.20 Opioid dependence, uncomplicated; Z87.09 Personal history of other diseases of the respiratory system; Z87.891 Personal history of nicotine dependence; Z87.39 Personal history of other diseases of the musculoskeletal system and connective tissue; Z79.899 Other long term (current) drug therapy

== ENCOUNTER → 2020-03-11 | Outpatient (CLI) | payer OTHER ==
[~2020-03-11] VITALS: Ht 160 cm; Wt 49.9 kg
[~2020-03-11] MED LIST changes: +DILTIAZEM ER60 M1 PO; +VOLTAREN GEL 1100 G2 TOP
[2020-03-11 09:56] VITALS: BP 164/77
--- NOTE | 2020-03-11 10:19 | NUR ---
Pain Clinic Assessment: 1. History of Osteoarthritis: DENIES History of Rheumatoid Arthritis: DENIES 2. Height: 5 ft. 3 in. 160.0 cm. Weight: 110.0 lb. oz. 49.896 kg. Patient's BMI: 19.5 3. Vital Signs: BP: 164/77 Pulse: 60 Resp: 14 Temp: 02 Sat: 98 ECG Mon: 4. Pain Intensity: 7-8 5. Fall Risk: Dizziness: N Needs help standing or walking: N Fallen in the last 3 months: N Fall risk comments: FELL 2 WEEKS AGO ON SIDEWALK DDI NOT SEEK CARE 6. Patient on Blood Thinner: None 7. History of Hypertension: Y 8. Opioid Therapy greater than 6 weeks: Y Opiate Contract Signed: 09/30/16 9. Risk Assessment Tool Provided: 1-LOW 10. Functional Assessment Tool: 11. Recreational Drug Use: Never Drug Type: Tobacco Use: Former Smoker Tobacco Type: Amount or Packs/day: How Many Years: Alcohol Use: No Frequency: Quant:
--- NOTE | 2020-03-12 07:52 | HPC ---
[facility] [address] [place] [address] PAIN MANAGEMENT CONSULTATION Name: JAYNA DURAN Room #: REG [facility]..#: [id number] Admission: 03/11/20 Attend Phys: Katy Simpson Discharge: Date of : 56 Report #: [id number] THIS REPORT FOR: cc: CONNOR PATEL Physician not on staff Katy Simpson ~ CC: Arcadio Green MD DATE OF SERVICE: 03/11/2020 CHIEF COMPLAINT: Back pain and lumbar radiculopathy. HISTORY OF PRESENT ILLNESS: This is a 59-year-old female who returns to the pain clinic today for refill of her medications that she uses to help treat her ongoing low back pain and left leg pain. She does suffer from scoliosis that affects her back quite significantly. Today, she rates her pain as 7-8. It is a shooting, numbness and tingly feeling, worse with ambulation and prolonged standing. She feels that the medication is beneficial as well as repositioning herself. She denies any problems of constipation or daytime somnolence. The patient states she is under quite a significant amount of stress. 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 Then last week, she was let go after almost 5 years of employment. She now is thinking she will seek disability due to her ongoing back issues. She also reports that her sister last week from a heart attack and then she had to put her dog to sleep due to health issues, so she has been quite stressed and depressed these last few weeks. She is hopeful to find some closure and take care of herself in the next few weeks. ALLERGIES: No known drug allergies. CURRENT LIST OF MEDICATIONS: Diltiazem, methadone 10 mg in the morning and 15 mg at night, Hydrocodone 10/325, gabapentin 100 mg 3 times a day, diclofenac gel, lisinopril, Flexeril, multivitamin, vitamin D, folic acid and vitamin B12. PQRS: 1. She is not being treated for rheumatoid arthritis. She does have arthritic changes in her back as well as scoliosis. 2. Height is 5 feet 3 inches, weight is 110. BMI is 19. 3. Vital signs 164/77, pulse is 60, respirations 14, oxygen sat is 98. 4. Pain score is 7-8. 5. Denies dizziness, does not need help walking or standing, has not fallen in the last 3 months. 6. The patient is not on any blood thinners, but does [place] [address] PAIN MANAGEMENT CONSULTATION Name: JAYNA DURAN Room #: REG [facility]..#: [id number] Admission: 03/11/20 Attend Phys: Katy Simpson Discharge: Date of : 56 Report #: [id number] 7. Opioid therapy is greater than 6 weeks; therefore, an opioid signed contract is on the chart. Risk assessment is low. Functional assessment is 54/70. 8. Recreational drug use, she denies. She is a former smoker and does not drink alcohol. According to the prescription monitoring system, the patient is filling appropriately. She is due to fill her medications today. Her morphine mEq is 105 MMEs per day. PHYSICAL EXAMINATION: GENERAL: This is a well-developed, well-nourished white female who appears her stated age, placing her current pain score at 7-8/10. Her affect is appropriate. She is wearing a mask. HEENT: Normocephalic, atraumatic. Extraocular eye muscles are intact. Sclerae are nonintrinsic. NECK: Without adenopathy. Does have slight tenderness on the right trapezius. LUNGS: Clear. MUSCULOSKELETAL: She is without significant kyphosis. She does have scoliosis of the lumbar spine. She has an antalgic gait. Her lower extremity strength judged to be 5/5 in all major muscle groups. She does have pain that radiates from her lumbosacral region down into her left leg. IMPRESSION: 1. History of spinal stenosis with significant curvature of the lumbar spine with scoliosis. 2. Lumbar radicular pain. 3. Complex medical management using methadone. 4. Tobacco habituation, not willing to decrease her smoking. We reviewed the fact that opiate medications are being used to provide analgesia adequate to support activities of daily living, not attempting to achieve a specific pain score on the 0-10 Visual Analog Scale. The current opiate medications are providing sufficient analgesia to allow the patient to participate in activities of daily living. The patient is not exhibiting any aberrant behavior suggestive of drug diversion. The patient is not having any adverse reactions to medications. The patient is not suffering from daytime somnolence or mental acuity changes. The patient is managing opiate-induced constipation with appropriate [id number] agents and dietary considerations. The patient was counseled on concern for caution with operating a motor vehicle while using opiate medications. A physical exam was performed and the patient's functional status was evaluated. All patients with back pain were advised against the bed rest greater than 4 days and were advised to return to normal activities. Pain score assessment was noted and the treatment plan was reviewed with the patient. All current medications, both prescribed and OTC were reviewed and reconciled on the [address] [address] PAIN MANAGEMENT CONSULTATION Name: JAYNA DURAN Room #: REG [facility]#: [id number] Admission: 03/11/20 Attend Phys: Katy Simpson Discharge: Date of : 56 Report #: [id number] electronic medical record. Tobacco screening was accomplished and smoking cessation was advised when indicated. BMI was noted and diet/exercise modification was recommended for all patients following outside normal parameters. I reviewed with the patient today their responsibilities to safeguard prescription medications, reviewed their responsibility to utilize medications only as prescribed by the physician. They are to seek and receive pain medications only from 1 physician group ( [facility]). They are to use 1 pharmacy and keep the clinic informed if they change pharmacies. Their responsibilities include making followup visits in a timely fashion and to avoid abrupt discontinuation of medication usage. Their responsibilities further include bringing their medications (bottles from the pharmacy with residual pills) to the visit for possible confirmation of pill counts and the patient understands it is their responsibility to submit to random drug screens to ensure both that the medications prescribed are present, and that no other controlled substances are present. All prescriptions provided today were generated electronically. PLAN: 1. We discussed treatment options with the patient today. The patient recently lost her job due to the COVID virus. She is using [employer] to pay for her medicines today. She was wondering if Dr. Green was willing to write for 3 months of medications this one time. She is going to seek social security disability. I did explain to her that our doctors do not do paperwork for that, so she will need to address this issue with her primary. The patient is aware of that. Today, Dr. Green did agree to write for hydrocodone 10/325, #90, for today for an 8-week supply as well as her methadone 10 mg, #75. The patient takes 15 in the morning and 10 at night for 3 months. 2. I will refill her gabapentin 100 mg tablets, patient takes it 3 times a day, #90 with 2 additional refills will be sent. She is unable to increase the dose due to somnolence of the medication. 3. I will also refill her Voltaren gel. She finds this beneficial on her various joints. Two grams with one additional refill will be sent. 4. The patient encouraged to make an appointment in 3 months. At that time, we will go back to seeing her every 2 months. The patient is seen today in collaboration with Dr. Rickie Green. <ELECTRONICALLY SIGNED> By: Katy Simpson 03/12/20 0752 [id number] Katy Simpson /nt
== END ==
LOC: PAIN 06:59
PROVIDERS: ATTEND Clinical Nurse Specialist Adult Health
DX: M54.16 Radiculopathy, lumbar region (principal); F11.20 Opioid dependence, uncomplicated; F17.200 Nicotine dependence, unspecified, uncomplicated; Z86.69 Personal history of other diseases of the nervous system and sense organs